=== PATIENT | female | born 1985 | race Caucasian/White ===

== ENCOUNTER 2016-11-07 10:31 | Emergency (ER) | payer MEDICAID ==
--- NOTE | 2016-11-07 11:06 | ER Document Report ---
HPI - HPI Patient complains to provider of: knot in front of right ear Onset: Yesterday Onset/Duration: Gradual Quality of pain: Throbbing Pain Level: 5 Context: 31-year-old female complaining of a knot in front of her right ear which causes her head to hurt on that side. No fever or chills. No conjunctivitis or eye drainage. Associated Symptoms: None Exacerbated by: Denies Relieved by: Denies Similar symptoms previously: No Recently seen / treated by doctor: No - ROS ROS below otherwise negative: Yes Systems Reviewed and Negative: Yes All other systems reviewed and negative - REPRODUCTIVE LMP: 10/17/16 Reproductive: DENIES: : - DERM Skin Color: Normal Past Medical History - General Information source: Patient - Social History Smoking Status: Current Every Day Smoker Chew tobacco use (# tins/day): Yes - 5 Frequency of alcohol use: None Drug Abuse: None Lives with: Family Family History: Reviewed & Not Pertinent Patient has suicidal ideation: No Patient has homicidal ideation: No Renal/ Medical History: Denies: Hx Peritoneal Dialysis Psychiatric Medical History: Reports: Hx Attention Deficit Hyperactivity Disorder, Hx Bipolar Disorder Surgical Hx: Negative - Immunizations Hx Diphtheria, Pertussis, Tetanus Vaccination: No Vertical Provider Document - CONSTITUTIONAL Agree With Documented VS: Yes Exam Limitations: No Limitations - INFECTION CONTROL TRAVEL OUTSIDE OF THE [place] IN LAST 30 DAYS: No - HEENT HEENT: Normocephalic, PERRLA. negative: Conjuctival Injection, Tympanic Membrane Red, Tympanic Membrane Bulging Notes: Canal is normal. There is a small lesion in the mid lower lip which should not be draining to the right preauricular node. - NECK Neck: Supple, Other - RESPIRATORY Respiratory: Breath Sounds Normal, No Respiratory Distress - See above O2 Sat by Pulse Oximetry: 99 - CARDIOVASCULAR Cardiovascular: Regular Rate, Regular Rhythm - MUSCULOSKELETAL/EXTREMETIES Musculoskeletal/Extremeties: WALLY JEFEFRS - NEURO Level of Consciousness: Awake, Alert - DERM Integumentary: Warm, Dry Course - Vital Signs Vital signs: Temp Pulse Resp BP Pulse Ox 98.3 F 71 18 107/62 99 11/07/16 10:46 11/07/16 10:46 11/07/16 10:46 11/07/16 10:46 11/07/16 10:46 Discharge - Discharge Clinical Impression: right preauricular adenitis Headache Qualifiers: Headache type: unspecified Headache chronicity pattern: unspecified pattern Intractability: not intractable Qualified Code(s): R51 - Headache Condition: Good Disposition: HOME, SELF-CARE Instructions: Cephalexin ([facility]), Lymphadenopathy ([facility]), Acetaminophen Additional Instructions: warm compress to er if worse Please complete the patient satisfaction survey if you get one, and return it.. If you do not receive a survey, then you can go to the [facility] website, [email or web address] and place your comments about your very good care. Thank you very much. It was a pleasure being your medical provider today. Prescriptions: Cephalexin Monohydrate [Keflex 500 mg Capsule] 500 mg PO QID #28 capsule
[2016-11-07] MEDS ORDERED: ACETAMINOPHEN 325 MG TABLET PO ONE (11:20)
[2016-11-07 11:30] VITALS: BP 105/60
== END 2016-11-07 11:29 | disposition home or self-care (01) ==
LOC: ER 10:31
DX: R51 Headache (principal)
CPT/HCPCS: 99282; J3490

== ENCOUNTER → 2016-11-25 | Outpatient (CLI) | payer MEDICAID | LOC: OD 11:16 | PROVIDERS: ATTEND Nurse Practitioner Family | DX: M54.2 Cervicalgia (principal); M25.512 Pain in left shoulder | CPT/HCPCS: 72050 ==

== ENCOUNTER 2016-12-03 15:44 | Emergency (ER) | payer MEDICAID ==
[2016-12-03] MEDS ORDERED: OXYCODONE-ACETAMINOPHEN 5-325 MG TABLET PO ONE (16:50)
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
[2016-12-03 19:09] VITALS: BP 116/68
--- NOTE | 2016-12-04 16:25 | XCELERA REPORT ---
[address] [address] Upper Extremity Venous Evaluation Name: TAMARA ZAPATA Age: 31 yrs Gender: Female : 1985 Patient Status: Emergency Patient Location: ER Study Date: 12/03/2016 04:59 PM Procedure: Unilateral duplex scan of the left upper extremity veins was performed, including responses to compression and other maneuvers. Reason For Study: swelling, pain Ordering Physician: DERIAN PRIETO Performed By: Leydi Easton Left Sided Venous Evaluation Normal vessel filling wall to wall, compression and augmentation as well as Colour flow down to the forearm veins. Critical Findings Called in to ANDERS Prieto at about 1600. Interpretation Summary No duplex evidence of DVT or obstruction in the left upper extremity. : DERIAN PRIETO > Vincenzo Zapata
== END 2016-12-03 19:09 | disposition home or self-care (01) ==
LOC: ER 15:44
DX: M79.602 Pain in left arm (principal); M79.89 Other specified soft tissue disorders; R03.0 Elevated blood-pressure reading, without diagnosis of hypertension; M54.2 Cervicalgia; Z79.899 Other long term (current) drug therapy
CPT/HCPCS: 71020; 93971; 99284

== ENCOUNTER 2017-02-08 02:11 | Emergency (ER) | payer MEDICAID ==
[2017-02-08] MEDS ORDERED: PROCHLORPERAZINE EDISYLATE INJ 10 MG/2 ML VIAL IV ONE (06:18)
[2017-02-08] MEDS ORDERED: NORMAL SALINE 1000 ML 1,000 ML IV ONE (06:18)
[2017-02-08] MEDS ORDERED: ONDANSETRON HCL INJ/PF 4 MG/2 ML SDV IV ONE (06:18)
[2017-02-08 07:08] LABS: ANION GAP 11 (5-19); BLOOD UREA NITROGEN 15 mg/dL (7-20); CALCIUM 9.2 mg/dL (8.4-10.2); CARBON DIOXIDE 28 mmol/L (22-30); CHLORIDE 103 mmol/L (98-107); CREATININE RESULT 0.81 mg/dL (0.52-1.25); GLUCOSE 89 mg/dL (75-110); POTASSIUM 3.6 mmol/L (3.6-5.0)
--- NOTE | 2017-02-08 08:20 | ER Document Report ---
ED General - General Chief Complaint: Head pain Stated Complaint: HEAD PAIN Time Seen by Provider: 02/08/17 06:17 TRAVEL OUTSIDE OF THE [place] IN LAST 30 DAYS: No - HPI Patient complains to provider of: Head pain Notes: Patient coming in for evaluation of hip pain. Patient states that she has a lump in the back of her neck concerned about lump causing her headache patient states that she has had a headache now ongoing for approximately 4 hours patient denies fevers chills nausea vomiting diarrhea. Patient denies any history of trauma. - Related Data Allergies/Adverse Reactions: NSAIDS (Non-Steroidal Anti-Inflamma Allergy (Verified 12/03/16 15:50) sulfamethoxazole [From Bactrim] Allergy (Verified 02/08/17 02:54) trimethoprim [From Bactrim] Allergy (Verified 02/08/17 02:54) Past Medical History - Social History Smoking Status: Unknown if Ever Smoked Family History: Reviewed & Not Pertinent Renal/ Medical History: Denies: Hx Peritoneal Dialysis Psychiatric Medical History: Reports: Hx Attention Deficit Hyperactivity Disorder, Hx Bipolar Disorder, Hx Depression Past Surgical History: Reports: Hx Section, Hx Orthopedic Surgery, Hx Tonsillectomy - & A - Immunizations Hx Diphtheria, Pertussis, Tetanus Vaccination: No Review of Systems - Review of Systems Constitutional: No symptoms reported EENT: No symptoms reported Cardiovascular: No symptoms reported Respiratory: No symptoms reported Gastrointestinal: No symptoms reported Genitourinary: No symptoms reported Female Genitourinary: No symptoms reported Musculoskeletal: No symptoms reported Skin: No symptoms reported Hematologic/Lymphatic: No symptoms reported Neurological/Psychological: Headaches -: Yes All other systems reviewed and negative Physical Exam - Vital signs Vitals: Temp Pulse Resp BP Pulse Ox 97.8 F 72 16 119/74 99 02/08/17 02:48 02/08/17 02:48 02/08/17 02:48 02/08/17 02:48 02/08/17 02:48 Interpretation: Normal - General General appearance: Appears well, Alert - HEENT Head: Normocephalic, Atraumatic Eyes: Normal Pupils: PERRL Notes: Single occipital lymphadenopathy on the left side. No signs of fluctuance no signs of abscess formation. - Respiratory Respiratory status: No respiratory distress Chest status: Nontender Breath sounds: Normal Chest palpation: Normal - Cardiovascular Rhythm: Regular Heart sounds: Normal auscultation Murmur: No - Abdominal Inspection: Normal Distension: No distension Bowel sounds: Normal Tenderness: Nontender Organomegaly: No organomegaly - Back Back: Normal, Nontender - Extremities General upper extremity: Normal inspection, Nontender, Normal color, Normal ROM , Normal temperature General lower extremity: Normal inspection, Nontender, Normal color, Normal ROM , Normal temperature, Normal weight bearing. No: Brooklynn's sign - Neurological Neuro grossly intact: Yes Cognition: Normal Orientation: AAOx4 [place] Coma Scale Eye Opening: Spontaneous [place] Coma Scale Verbal: Oriented [place] Coma Scale Motor: Obeys Commands [place] Coma Scale Total: 15 Speech: Normal Motor strength normal: LUE, RUE, LLE, RLE Sensory: Normal - Psychological Associated symptoms: Normal affect, Normal mood - Skin Skin Temperature: Warm Skin Moisture: Dry Skin Color: Normal Course - Re-evaluation Re-evalutation: 02/08/17 14:01 The patient presents with headache without signs of MANAGER CUSTOMER bleed, stroke, infection , or other serious etiology. The patient is neurologically intact. Given the extremely low risk of these diagnoses further testing and evaluation for these possibilities does not appear to be indicated at this time. The patient has been instructed to return if the symptoms worsen or change in any way.. Patient feeling better after medications. Patient will be discharged home follow-up with primary care physician - Vital Signs Vital signs: Temp Pulse Resp BP Pulse Ox 97.8 F 72 15 107/69 100 02/08/17 02:48 02/08/17 02:48 02/08/17 08:00 02/08/17 08:17 02/08/17 08:17 - Laboratory Result Diagrams: 02/08/17 06:45 Discharge - Discharge Clinical Impression: Occipital lymphadenopathy Headache Qualifiers: Headache type: unspecified Headache chronicity pattern: unspecified pattern Intractability: not intractable Qualified Code(s): R51 - Headache Condition: Good Disposition: HOME, SELF-CARE Instructions: Headache ([facility]) Additional Instructions: Examination today reveals no serious pathology. Lab work also does not show any serious pathology. I will prescribe you the medication that we gave you for your headache Compazine and Zofran please take these 2 medications together for headaches if they return. He may also take Tylenol Motrin. Continue home medications as prescribed. You have a single prominent lymph node in the back your head no signs of abscess formation. Continue to monitor this sometimes lymph nodes will become inflamed can cause pain sometimes an abscess will form however I see no signs of this today. I recommended she have this reevaluated in approximately 1-2 weeks by her primary care physician Prescriptions: Ondansetron [Zofran Odt 4 mg Tablet] 4 mg PO Q6 #14 tab.rapdis Prochlorperazine Maleate [Compazine] 5 mg PO Q6 #14 tablet Forms: Return to Work Referrals: AARON MORAN MD [Primary Care Provider] - Follow up as needed
[2017-02-08 08:21] VITALS: BP 107/69
== END 2017-02-08 08:40 | disposition home or self-care (01) ==
LOC: ER 02:11
DX: R59.1 Generalized enlarged lymph nodes (principal); R51 Headache; Z88.3 Allergy status to other anti-infective agents
CPT/HCPCS: 99284; 96374; 96375; 36415; 84703; 80048; J0780; J2405; J7030

== ENCOUNTER 2017-03-24 17:06 | Emergency (ER) | payer MEDICAID ==
[2017-03-24 17:14] VITALS: BP 133/69
--- NOTE | 2017-03-24 18:19 | ER Document Report ---
ED Extremity Problem, Upper - General Chief Complaint: Shoulder Pain Stated Complaint: SHOULDER PAIN Time Seen by Provider: 03/24/17 17:44 Mode of Arrival: Ambulatory Information source: Patient Notes: 31-year-old female presented to ED for chronic pain to her left shoulder. She has been being seen by Dr. Cerrato who had placed medication patched to help with her chronic pain and had taken her off of her oxycodone's. Patient states that the patches were not helping and the patches were burning her skin and she could not use them and she states she has been trying to call Dr. Cerrato to get a different pain medicine. She states the doctor's office told her to come to the emergency room for her chronic pain management. TRAVEL OUTSIDE OF THE [place] IN LAST 30 DAYS: No - HPI Patient complains to provider of: Shoulder - Chronic pain to left shoulder states she was told by Dr. Cerratoon Monday that she had a torn rotator cuff. Onset: Other - 4 months ago Recent injury: No Quality of pain: Sharp, Throbbing Severity of pain: Moderate Pain Level: 4 Associated symptoms: None Exacerbated by: Movement Relieved by: Nothing Similar symptoms previously: Yes Recently seen / treated by doctor: Yes - Related Data Allergies/Adverse Reactions: NSAIDS (Non-Steroidal Anti-Inflamma Allergy (Verified 03/24/17 17:12) sulfamethoxazole [From Bactrim] Allergy (Verified 03/24/17 17:12) trimethoprim [From Bactrim] Allergy (Verified 03/24/17 17:12) Past Medical History - General Information source: Patient - Social History Smoking Status: Current Every Day Smoker Cigarette use (# per day): Yes Chew tobacco use (# tins/day): No Smoking Education Provided: Yes - Less than 2 minutes Frequency of alcohol use: None Drug Abuse: None Lives with: Other - Children Family History: Reviewed & Not Pertinent Patient has suicidal ideation: No Patient has homicidal ideation: No - Past Medical History Cardiac Medical History: Reports: None Pulmonary Medical History: Reports: None EENT Medical History: Reports: None Neurological Medical History: Reports: None Endocrine Medical History: Reports: None Renal/ Medical History: Reports: None Malignancy Medical History: Reports: None GI Medical History: Reports: None Musculoskeltal Medical History: Reports Hx Musculoskeletal Deformity, Reports Hx Musculoskeletal Trauma Skin Medical History: Reports None Psychiatric Medical History: Reports: Hx Attention Deficit Hyperactivity Disorder, Hx Bipolar Disorder, Hx Depression Traumatic Medical History: Reports: None Infectious Medical History: Reports: None Past Surgical History: Reports: Hx Section, Hx Orthopedic Surgery, Hx Tonsillectomy - & A - Immunizations Hx Diphtheria, Pertussis, Tetanus Vaccination: No Review of Systems - Review of Systems Constitutional: No symptoms reported EENT: No symptoms reported Cardiovascular: No symptoms reported Respiratory: No symptoms reported Gastrointestinal: No symptoms reported Genitourinary: No symptoms reported Female Genitourinary: No symptoms reported Musculoskeletal: Joint pain, Muscle pain - Left shoulder pain, Muscle stiffness Skin: No symptoms reported Hematologic/Lymphatic: No symptoms reported Neurological/Psychological: No symptoms reported -: Yes All other systems reviewed and negative Physical Exam - Vital signs Vitals: Temp Pulse Resp BP Pulse Ox 97.8 F 78 18 133/69 H 100 03/24/17 17:13 03/24/17 17:13 03/24/17 17:13 03/24/17 17:13 03/24/17 17:13 Interpretation: Normal - General General appearance: Appears well, Alert - HEENT Head: Normocephalic, Atraumatic Eyes: Normal Pupils: PERRL - Respiratory Respiratory status: No respiratory distress Chest status: Nontender Breath sounds: Normal Chest palpation: Normal - Cardiovascular Rhythm: Regular Heart sounds: Normal auscultation Murmur: No - Abdominal Inspection: Normal Distension: No distension Bowel sounds: Normal Tenderness: Nontender Organomegaly: No organomegaly - Back Back: Normal, Nontender - Extremities General upper extremity: Normal inspection, Normal color, Normal temperature General lower extremity: Normal inspection, Nontender, Normal color, Normal ROM , Normal temperature, Normal weight bearing. No: Brooklynn's sign Shoulder: Tender, Limited ROM - Due to pain patient is in the sling to the left shoulder - Neurological Neuro grossly intact: Yes Cognition: Normal Orientation: AAOx4 [place] Coma Scale Eye Opening: Spontaneous [place] Coma Scale Verbal: Oriented [place] Coma Scale Motor: Obeys Commands [place] Coma Scale Total: 15 Speech: Normal Motor strength normal: LUE, RUE, LLE, RLE Sensory: Normal - Psychological Associated symptoms: Normal affect, Normal mood - Skin Skin Temperature: Warm Skin Moisture: Dry Skin Color: Normal Course - Re-evaluation Re-evalutation: 03/24/17 22:41 Discussed shoulder exercises swimming ice warm packs and Aspercreme. Instructed patient on the hospital policy on chronic pain management. There has been no new injury to this area. - Vital Signs Vital signs: Temp Pulse Resp BP Pulse Ox 97.8 F 78 18 133/69 H 100 03/24/17 17:13 03/24/17 17:13 03/24/17 17:13 03/24/17 17:13 03/24/17 17:13 Discharge - Discharge Clinical Impression: Chronic pain in left shoulder Condition: Stable Disposition: HOME, SELF-CARE Additional Instructions: Chronic Pain Control Stress, inactivity, and depression make pain more severe regardless of the cause of the pain. Stress and poor physical condition can cause pain such as headaches and backache. Relaxation: Rest in a quiet place with your eyes closed for 20 minutes twice daily. Concentrate on a pleasant image, or simply "feel" your breathing. Clear your mind. Stress management: Deal with your "stressors." Either take action, or eliminate the stressor from your life. Don't let things hang over you. Accept those things you can't change. Nutrition: Eat small, balanced meals -- don't skip, don't overeat. Meals should be high-carbohydrate, low-sugar, low-fat. Exercise: Exercise helps painful conditions and eases stress. Get 30 minutes of moderate exercise, five days a week. Do an activity that does not flare your pain. Precautions: Pain which continues to disrupt daily activities, or which changes in nature, requires a medical evaluation. Pain Clinic referral is available. We do not manage chronic pain in the Emergency Department. We will try to appropriately help you through an acute flare of your chronic painful condition , but for on-going chronic pain that does not improve, you will need to see your private doctor or lead painter. We do not provide repeated medication management of chronic painful conditions. If you wish, we can provide the name of local pain management physicians. Acetaminophen Acetaminophen may be taken for pain relief or fever control. It's much safer than aspirin, offering a wider range of "safe" dosages. It is safe during . Some brand names are Tylenol, Panadol, Datril, Anacin 3, Tempra, and Liquiprin. Acetaminophen can be repeated every four hours. The following are maximum recommended dosages: WEIGHT Dose Drops Elixir Chewable( 80mg) (LBS.) drprs=droppers tsp=teaspoon 6 40 mg .4 ml (1/2) 6-11 80 mg .8 ml (full) 1/2 tsp 1 tab 12-16 120 mg 1 1/2 drprs 3/4 tsp 1 1/2 tabs 17-23 160 mg 2 drprs 1 tsp 2 tabs 24-30 240 mg 3 drprs 1 1/2 tsp 3 tabs 30-35 320 mg 2 tsp 4 tabs 36-41 360 mg 2 1/4 tsp 4 1 /2 tabs 42-47 400 mg 2 1/2 tsp 5 tabs 48-53 480 mg 3 tsp 6 tabs 54-59 520 mg 3 1/4 tsp 6 1 /2 tabs 60-64 560 mg 3 1/2 tsp 7 tabs 65-70 600 mg 3 3/4 tsp 7 1 /2 tabs 71-76 640 mg 4 tsp 8 tabs 77-82 720 mg 4 1/2 tsp 9 tabs 83-88 800 mg 5 tsp 10 tabs >89 pounds or adults 650 mg to 900 mg Acetaminophen can be repeated every four hours. Maximum daily dose not to exceed 4000 mg. These maximum recommended dosages are slightly higher than the dosages written on the product container, but these dosages are very safe and well below the toxic dosage for acetaminophen. Ice Packs Apply ice packs frequently against the painful area. Many different schedules are recommended, such as "20 minutes on, 20 minutes off" or "one hour ice, two hours rest." If you need to work, you may need to go longer between ice treatments. You should plan to have the area ice packed AT LEAST one fourth of the time. The ice should be applied over the wrap, tape, or splint, or over a layer of cloth -- not directly against the skin. Some ice bags have a built-in cloth and can be put directly on the skin. Warm Packs After approximately two days, apply gentle heat (such as a heating pad or hot water bottle) for about 20 to 30 minutes about every two hours -- at least four times daily. Warmth and elevation will help you make a more rapid recovery , and will ease the pain considerably. Do not use HOT heat, and never apply heat for longer than 30 minutes. The continuous heat can invisibly damage skin and muscles -- even when no burn is seen on the surface. Damaged muscles can make you MORE sore. FOLLOW-UP CARE: If you have been referred to a physician for follow-up care, call the physician s office for an appointment as you were instructed or within the next two days. If you experience worsening or a significant change in your symptoms, notify the physician immediately or return to the Emergency Department at any time for re-evaluation. Forms: Elevated Blood Pressure Referrals: AARON MORAN MD [Primary Care Provider] - Follow up as needed
== END 2017-03-24 18:21 | disposition home or self-care (01) ==
LOC: ER 17:06
DX: M25.512 Pain in left shoulder (principal); G89.29 Other chronic pain; Z79.899 Other long term (current) drug therapy; F17.210 Nicotine dependence, cigarettes, uncomplicated
CPT/HCPCS: 99283

== ENCOUNTER 2017-04-27 09:07 | Day surgery (SDC) | payer MEDICAID ==
--- NOTE | 2017-04-21 10:59 | RADIOLOGY REPORT (SQ) ---
EXAM DESCRIPTION: CHEST PA/LATERAL COMPLETED DATE/TIME: 04/21/2017 10:51 am REASON FOR STUDY: PRE OP COMPARISON: 12/03/2016 EXAM PARAMETERS: NUMBER OF VIEWS: two views TECHNIQUE: Digital Frontal and Lateral radiographic views of the chest acquired. RADIATION DOSE: NA LIMITATIONS: none FINDINGS: LUNGS AND PLEURA: No opacities, masses or pneumothorax. No pleural effusion. MEDIASTINUM AND HILAR STRUCTURES: No masses or contour abnormalities. HEART AND VASCULAR STRUCTURES: Heart normal size. No evidence for failure. BONES: No acute findings. HARDWARE: None in the chest. OTHER: No other significant finding. IMPRESSION: NO SIGNIFICANT RADIOGRAPHIC FINDING IN THE CHEST. TECHNICAL DOCUMENTATION: JOB ID: [id number] [employer]- All Rights Reserved
[2017-04-21 11:38] LABS: APPEARANCE,URINE SLIGHTLY-CLOUDY; BILIRUBIN,URINE NEGATIVE (NEGATIVE); GLUCOSE, URINE NEGATIVE (NEGATIVE); KETONES,URINE NEGATIVE (NEGATIVE); LEUKOCYTE ESTERASE,URINE NEGATIVE (NEGATIVE); NITRITE,URINE NEGATIVE (NEGATIVE); PROTEIN,URINE NEGATIVE (NEGATIVE); URINE SPECIFIC GRAVITY 1.026
[2017-04-21 11:44] LABS: ABSOLUTE EOSINOPHILS # (AUTO) 0.2 10^3/uL (0.0-0.6); ABSOLUTE LYMPHOCYTES (AUTO) 2.5 10^3/uL (0.5-4.7); ABSOLUTE MONOCYTES (AUTO) 0.7 10^3/uL (0.1-1.4); ABSOLUTE NEUT (AUTO) 1.8 10^3/uL (1.7-8.2); BASOPHILS % (AUTO) 0.8 % (0-2); EOSINOPHILS % (AUTO) 4.3 % (0-6); HEMATOCRIT 40.8 % (36.0-47.0); HGB HCT DIFFERENCE 1.2; MEAN CORPUSCULAR HEMOGLOBIN 30.6 pg (27.0-33.4); MEAN CORPUSCULAR HGB CONC 34.4 g/dL (32.0-36.0); MEAN CORPUSCULAR VOLUME 89 fl (80-97); MONOCYTES % (AUTO) 13.6 % (3-13); RED BLOOD COUNT 4.59 10^6/uL (3.72-5.28); RED CELL DISTRIBUTION WIDTH 14.1 % (11.5-14.0); SEGMENTED NEUTROPHILS % (AUTO) 33.3 % (42-78); WHITE BLOOD COUNT 5.3 10^3/uL (4.0-10.5)
[2017-04-21 12:09] LABS: ANION GAP 9 (5-19); BLOOD UREA NITROGEN 8 mg/dL (7-20); CALCIUM 9.6 mg/dL (8.4-10.2); CARBON DIOXIDE 29 mmol/L (22-30); CHLORIDE 104 mmol/L (98-107); CREATININE RESULT 0.72 mg/dL (0.52-1.25); GLUCOSE 88 mg/dL (75-110); POTASSIUM 4.3 mmol/L (3.6-5.0)
--- NOTE | 2017-04-21 17:27 | EKG REPORT ---
SEVERITY:- NORMAL ECG - SINUS RHYTHM : Confirmed by: Mayra Sweeney 21-Apr-2017 17:27:21
[~2017-04-27 09:07] MED LIST: ACETAMINOPHEN 100 ML IV ONE; BUPIVACAINE HCL 0.25 % INJ/PF (2.5 MG/1 ML) 30 ML VIAL ONE; CEFAZOLIN 2 GM/D5W RTU 2 GM/50 ML RTUPB IV PRN; DEXMEDETOMIDINE INJ 80 MCG/20 ML VIAL IV ONE; EPINEPHRINE INJ/PF 1 MG/1 ML AMPULE ONE; FENTANYL CITRATE INJ/PF 250 MCG/5 ML AMPULE ONE; IBUPROFEN INJ 800 MG/8 ML VIAL IV ONE; LACTATED RINGERS 1000 ML IV PRN; LIDOCAINE 0.5% INJ-PF (5 MG/ML) 50 ML SDV SUBCUT PRN; MIDAZOLAM 2 MG/2 ML INJ ONE; PROPOFOL INJ 200 MG/20 ML VIAL IV ONE
[2017-04-27] MEDS ORDERED: MORPHINE SULFATE 10 MG/ML INJ IV PRN (09:43)
[2017-04-27] MEDS ORDERED: ONDANSETRON HCL INJ/PF 4 MG/2 ML SDV IV PRN (09:43)
[2017-04-27] MEDS ORDERED: FENTANYL CITRATE INJ/PF 100 MCG/2 ML AMPUL IV PRN ×3 (09:43)
[2017-04-27] MEDS ORDERED: MEPERIDINE HCL/PF INJ 25 MG/1 ML DISP.SYRIN IV PRN (09:43)
[2017-04-27] MEDS ORDERED: DIPHENHYDRAMINE HCL 50 MG/ML VIAL IV PRN (09:43)
[2017-04-27] MEDS ORDERED: PROMETHAZINE HCL INJ 25 MG/1 ML VIAL IV PRN ×2 (09:43)
[2017-04-27] MEDS ORDERED: HYDROMORPHONE HCL INJ/PF 2 MG/ML AMPULE ONE (09:48)
[2017-04-27] MEDS ORDERED: SCOPOLAMINE HYDROBROMIDE 1.5 MG PATCH.TD72 ONE (10:07)
--- NOTE | 2017-04-27 12:11 | Operative Report ---
Operative Report DATE OF SURGERY: 04/27/17 PREOPERATIVE DIAGNOSIS: Right shoulder partial thickness rotator cuff tear and impingement syndrome POSTOPERATIVE DIAGNOSIS: Right shoulder impingement syndrome and type II SLAP tear with Madeline complex OPERATION: Right shoulder arthroscopy with debridement and decompression including acromioplasty and subpectoralis biceps tenodesis SURGEON: JONNA DO ANESTHESIA: GA TISSUE REMOVED OR ALTERED: Portion of the long head of the biceps COMPLICATIONS: None ESTIMATED BLOOD LOSS: 20 mL INTRAOPERATIVE FINDINGS: As above PROCEDURE: Patient received preoperative antibiotics in the holding area. Patient then was taken to the operating room where she was induced and intubated in supine position. Patient then was secured in the beachchair position where the left shoulder was prepped and draped in a normal surgical fashion. Was done identifying the left shoulder as the correct site. Spinal needle was used to insert into the glenohumeral joint and I proceeded to distend the capsule with sterile saline solution. 11 blade was used to establish my posterior portal and I introduced the cannula into the glenohumeral joint. Once I got return of fluid I confirm proper placement and placed a camera. Under direct visualization I placed a spinal needle marked my anterior portal and used an 11 blade to establish a. I placed a purple cannula and then through the cannula was able to probe and proceed with my diagnostic scope which show pristine glenohumeral joint cartilage and intact labrum anterior, inferior and posterior. Patient had a Madeline complex and a detached superior labral tear. Pictures were taken showing the tear with elevation with my probe. To my attention to the footprint of the rotator cuff which showed to be intact with no partial tearing which was contrary to what the MRI report showed.. At this point through the anterior portal I use arthroscopic scissors to do a tenotomy of the long head of the biceps at the attachment of the glenoid superiorly. After debriding the remnant labrum I redirected the scope to the subacromial space and established a lateral portal with 11 blade. Attention was done horizontally. I used the ablator to them do a formal bursectomy and delineate the acromion. Pictures of the before and after acromioplasty. Took pictures to show the intact rotator cuff and the bursal side. Also satisfied with my decompression and acromioplasty I proceeded then to remove fluid from the shoulder joint and removed the instruments. A 1 inch incision was done just medial to the axillary fold dissection was done with Metzenbaum scissors and hemostasis was obtained with the Bovie. Able to then cut the fascia overlying the biceps and then hooked the long head of biceps with a 90 clamp. Was able then to use a fiber loop and suture 2 cm from the muscular tendinous junction and cut the remaining tendon. I used 2 Homans to reflect tissue on the side of the humerus. I used a 4 mm spade tip guidepin then to do my proximal cortex drilling into the intramedullary canal of the humerus. I fed the 2 ends of the fiber wire into the biceps tenodesis button as recommended by the manufacturing company. Pulled out the guidepin and then proceeded to insert the button into the intramedullary canal. I was able to successfully flipped the button and after releasing securing the biceps. I used a free needle the comes in the care and pass one of the FiberWire ends through the biceps one more time to further secure it. Once I since the biceps onto the humeral cortex I then proceeded to go several half hitch knots for added fixation. Instruments were removed and used bulb irrigation to wash the tissue. I proceeded to approximate the tissue with 2-0 Vicryl and close the skin with 3-0 nylon. The 2 of the portal sites were closed with 3-0 nylon as well. I placed Xeroform over the incisions and covered it with 4 x 4 dressing and ABD pads. Secured the dressing with Medipore tape. Patient's arm was placed in the sling and the patient then was placed in supine position extubated and sent to PACU in stable condition.
[2017-04-27] MEDS ORDERED: OXYCODONE-ACETAMINOPHEN 5-325 MG TABLET PO PRN ×2 (12:14)
--- NOTE | 2017-04-27 12:14 | PDOC DISCHARGE SUMMARY ---
Discharge Summary (SDC) - Discharge Final Diagnosis: Status post left shoulder arthroscopic debridement with subacromial decompression including acromioplasty and subpectoralis biceps tenodesis Date of Surgery: 04/27/17 Discharge Date: 04/27/17 Condition: Good Treatment or Instructions: Patient is instructed to follow up in 10-14 days. Patient instructed to remove dressing in 4 days then can shower and apply Band- Aids as needed. Patient to wear sling for comfort but okay to remove for shower and pendulum exercises. Pendulum exercises are instructed to be done 3 times a day ideally with breakfast, lunch, dinners and showers. Patient instructed to call if there is any signs of redness or drainage fevers or chills. Prescriptions: Oxycodone HCl/Acetaminophen [Percocet 5-325 mg Tablet] 1 - 2 tab PO ASDIR PRN # 60 tablet PRN Reason: Referrals: BOBBY AMADOR, VIRTUALIZATION ARCHITECT [Primary Care Provider] - Discharge Diet: As Tolerated Respiratory Treatments at Home: Deep Breathing/Coughing Discharge Activity: No Driving, No Lifting/Push/Pulling Home Care Assistance: None Needed Report the Following to Your Physician Immediately: Shortness of Breath, Vomiting, Fever over 101 Degrees, Unusual Bleeding, Redness, Swelling, Warmth, Increased Soreness, Drainage-Yellow, Drainage-[place], Drainage-Green, Drainage- Foul Smelling
[2017-04-27] MEDS ORDERED: SUCCINYLCHOLINE CHLORIDE INJ 200 MG/10 ML VIAL ONE (12:52)
[2017-04-27] MEDS ORDERED: LIDOCAINE 2% INJ-PF (20 MG/ML) 10 ML AMPUL ONE (12:52)
[2017-04-27] MEDS ORDERED: DEXAMETHASONE SOD PHOSPHATE INJ 4 MG/1 ML VIAL ONE (12:52)
[2017-04-27] MEDS ORDERED: ONDANSETRON HCL INJ/PF 4 MG/2 ML SDV ONE (12:52)
[2017-04-27] MEDS ORDERED: METOCLOPRAMIDE HCL INJ/PF 10 MG/2 ML SDV ONE (12:52)
[2017-04-27 15:19] VITALS: BP 119/76
== END 2017-04-27 14:40 | disposition home or self-care (01) ==
LOC: OROUT 09:07
PROVIDERS: ATTEND Orthopaedic Surgery
PROC: 0RBK4ZZ Excision of Left Shoulder Joint, Percutaneous Endoscopic Approach (ICD-10-PCS; 2017-04-27)
PROC: 0LM40ZZ Reattachment of Left Upper Arm Tendon, Open Approach (ICD-10-PCS; principal; 2017-04-27 11:15)
DX: M75.112 Incomplete rotator cuff tear or rupture of left shoulder, not specified as traumatic (principal); F17.210 Nicotine dependence, cigarettes, uncomplicated; F31.9 Bipolar disorder, unspecified; F41.9 Anxiety disorder, unspecified; E66.9 Obesity, unspecified; Z88.6 Allergy status to analgesic agent; Z79.899 Other long term (current) drug therapy; Z68.34 Body mass index [BMI] 34.0-34.9, adult
CPT/HCPCS: 24340; 93005; 36415; 85025; 81025; 80048; 81001; 71020; 93010; 29822; C1713; J2250; J1100; J0171; J3010; J3490 ×3; J2765; J0330; J2405; S0020; J2704; J0690; J0131; 1630; J1170; J1741

== ENCOUNTER 2017-07-11 18:44 | Emergency (ER) | payer MEDICAID ==
[2017-07-11 19:35] VITALS: BP 125/73
[2017-07-11] MEDS ORDERED: HYDROCODONE/ACETAMINOPHEN 5-325 MG TABLET PO ONE (21:26)
--- NOTE | 2017-07-11 21:29 | ER Document Report ---
ED Medical Screen (RME) - General Chief Complaint: Post Surgical Pain Stated Complaint: LEFT ARM PAIN, SWELLING Time Seen by Provider: 07/11/17 21:26 Mode of Arrival: Ambulatory Information source: Patient Notes: A 32-year-old female presents to ED and pain. Left upper arm is tight very tender to touch decreased range of motion. Patient states she had bicep tendon surgery April 27 and the pain started several days ago and is gotten progressively worse. Patient has a past medical history of fracture to the ankle with surgery and tonsillectomy. Allergic to sulfa and NSAIDs. I have greeted and performed a rapid initial assessment of this patient. A comprehensive ED assessment and evaluation of the patient, analysis of test results and completion of medical decision making process will be conducted by an additional ED providers. TRAVEL OUTSIDE OF THE [place] IN LAST 30 DAYS: No - Related Data Allergies/Adverse Reactions: NSAIDS (Non-Steroidal Anti-Inflamma Allergy (Verified 07/11/17 18:50) sulfamethoxazole [From Bactrim] Allergy (Verified 07/11/17 18:50) trimethoprim [From Bactrim] Allergy (Verified 07/11/17 18:50) Past Medical History - Past Medical History Cardiac Medical History: Denies: Hx Coronary Artery Disease, Hx Heart Attack, Hx Hypertension Pulmonary Medical History: Denies: Hx Asthma, Hx Bronchitis, Hx COPD, Hx Pneumonia Neurological Medical History: Denies: Hx Cerebrovascular Accident, Hx Seizures Renal/ Medical History: Denies: Hx Peritoneal Dialysis Musculoskeltal Medical History: Reports Hx Arthritis - OA, Reports Hx Musculoskeletal Deformity, Reports Hx Musculoskeletal Trauma Psychiatric Medical History: Reports: Hx Attention Deficit Hyperactivity Disorder, Hx Bipolar Disorder, Hx Depression Past Surgical History: Reports: Hx Section, Hx Orthopedic Surgery, Hx Tonsillectomy - & A - Immunizations Hx Diphtheria, Pertussis, Tetanus Vaccination: No Physical Exam - Vital signs Vitals: Temp Pulse Resp BP Pulse Ox 97.9 F 78 20 125/73 100 07/11/17 19:34 07/11/17 19:34 07/11/17 19:34 07/11/17 19:34 07/11/17 19:34 Course - Vital Signs Vital signs: Temp Pulse Resp BP Pulse Ox 97.9 F 78 20 125/73 100 07/11/17 19:34 07/11/17 19:34 07/11/17 19:34 07/11/17 19:34 07/11/17 19:34
[2017-07-11] MEDS ORDERED: HYDROCODONE/ACETAMINOPHEN 5-325 MG 6 TAB/DSPK PO PRN (23:50)
--- NOTE | 2017-07-11 23:53 | ER Document Report ---
ED General - General Chief Complaint: Post Surgical Pain Stated Complaint: LEFT ARM PAIN, SWELLING Time Seen by Provider: 07/11/17 21:26 Mode of Arrival: Ambulatory Notes: Patient is a pleasant 32-year-old female presents with complaint of pain in her left arm. She says over last several days her left arm has become swollen. She had surgery performed by Dr. Chirinos. She says surgery was performed on her biceps tendon. She says that she is currently in physical therapy. She has had no recurrent trauma. No recurrent injuries that she is aware of. She does have a sling at home but has not been wearing it she did not know if this would help. She has been taking Tylenol for pain says is not helping. I did look up and then the prescription database. She is received pain medication prescription from Dr. Vinson after surgery and also received a prescription from [facility] on July 01. She said she did go to [facility] at that time and was seen in follow-up with Dr. Gallegos afterwards. Dr. Chirinos gave her cortisone shot but now she has have recurrent swelling and pain and therefore came to the ER. No numbness or weakness into the hand. No other complaints at this time. No redness. No fevers. TRAVEL OUTSIDE OF THE [place] IN LAST 30 DAYS: No - Related Data Allergies/Adverse Reactions: NSAIDS (Non-Steroidal Anti-Inflamma Allergy (Verified 07/11/17 18:50) sulfamethoxazole [From Bactrim] Allergy (Verified 07/11/17 18:50) trimethoprim [From Bactrim] Allergy (Verified 07/11/17 18:50) Past Medical History - General Information source: Patient - Social History Smoking Status: Unknown if Ever Smoked Frequency of alcohol use: None Drug Abuse: None Family History: Reviewed & Not Pertinent Patient has suicidal ideation: No Patient has homicidal ideation: No - Past Medical History Cardiac Medical History: Denies: Hx Coronary Artery Disease, Hx Heart Attack, Hx Hypertension Pulmonary Medical History: Denies: Hx Asthma, Hx Bronchitis, Hx COPD, Hx Pneumonia Neurological Medical History: Denies: Hx Cerebrovascular Accident, Hx Seizures Renal/ Medical History: Denies: Hx Peritoneal Dialysis Musculoskeltal Medical History: Reports Hx Arthritis - OA, Reports Hx Musculoskeletal Deformity, Reports Hx Musculoskeletal Trauma Psychiatric Medical History: Reports: Hx Attention Deficit Hyperactivity Disorder, Hx Bipolar Disorder, Hx Depression Past Surgical History: Reports: Hx Section, Hx Orthopedic Surgery, Hx Tonsillectomy - & A - Immunizations Hx Diphtheria, Pertussis, Tetanus Vaccination: No Review of Systems - Review of Systems Notes: My Normal Review Basic REVIEW OF SYSTEMS: CONSTITUTIONAL : Denies fever, chills, or sweats. Denies recent illness. MUSCULOSKELETAL: Swelling over left arm. SKIN: Denies rash or skin lesions. NEUROLOGICAL: Denies sensory or motor loss. ALL OTHER SYSTEMS REVIEWED AND NEGATIVE. Physical Exam - Vital signs Vitals: Temp Pulse Resp BP Pulse Ox 97.9 F 78 20 125/73 100 07/11/17 19:34 07/11/17 19:34 07/11/17 19:34 07/11/17 19:34 07/11/17 19:34 - Notes Notes: General Appearance: Well nourished, alert, cooperative, no acute distress, moderate obvious discomfort. Vitals: reviewed, See vital signs table. Extremities: Patient has swelling that is mild over the left upper arm. There is no redness or warmth associated with it. No signs of infection. No bruising. Remainder of the extremity is normal-appearing. She has good distal pulses. Good distal sensation. Skin: warm, dry, appropriate color, no rash Neuro: speech clear, oriented x 3, normal affect, responds appropriately to questions. Course - Re-evaluation Re-evalutation: 07/11/17 23:56 Patient's ultrasound was negative for DVT. She looks well. Her exam shows just a small amount of swelling. She did ask for pain medicine. I told her only give her a few [place] tablets to go home with. Informed her I do not want to place her on long-term chronic and recurrent opiate pain medications as this will cause her to become dependent and she will have hard time treating her pain in the future without opiates. Patient is understanding of this. I informed her that she should only take these medications very sparingly and only when her pain is very severe especially at night when she is having a hard time sleeping. Patient agrees with this plan and says she will otherwise take other forms of pain control per pain and only use the [place] when her pain is severe and intractable. Patient agrees to follow-up with Dr. Chirinos over the next few days for reevaluation. Encouraged her to wear her sling at home as this will take the strain of her biceps tendon. Dictation of this chart was performed using voice recognition software; therefore, there may be some unintended grammatical errors. - Vital Signs Vital signs: Temp Pulse Resp BP Pulse Ox 97.9 F 78 20 125/73 100 07/11/17 19:34 07/11/17 19:34 07/11/17 19:34 07/11/17 19:34 07/11/17 19:34 Discharge - Discharge Clinical Impression: Arm pain, left Condition: Good Disposition: HOME, SELF-CARE Instructions: Oral Narcotic Medication ([facility]) Additional Instructions: Your ultrasound showed no evidence of DVT in the left arm. Please wear your sling as this will take the strain off of your biceps tendon. Please follow up with Dr. Chirinos in the next 1-3 days. Please only use the [place] when the pain is unbearable. Forms: Return to Work Referrals: JONNA FIGUEREDO MD [ACTIVE STAFF] - Follow up tomorrow
--- NOTE | 2017-07-12 00:58 | RADIOLOGY REPORT (SQ) ---
EXAM DESCRIPTION: VENOUS UNILATERAL UPPER CLINICAL HISTORY: 32 years, Female, left arm swelling pain recent surgery COMPARISON: None. TECHNIQUE: Venous Doppler. LIMITATIONS: None. FINDINGS: Color Doppler flow, compression, and augmentation maneuvers show no evidence of deep venous thrombus of the left upper extremity. IMPRESSION: No evidence of DVT of the left upper extremity. 2011 [employer]- All Rights Reserved
== END 2017-07-12 00:15 | disposition home or self-care (01) ==
LOC: ER 18:44
DX: M79.602 Pain in left arm (principal); Z88.3 Allergy status to other anti-infective agents; Z98.890 Other specified postprocedural states
CPT/HCPCS: 93971; 99283

== ENCOUNTER 2017-09-07 11:34 | Emergency (ER) | payer MEDICAID ==
--- NOTE | 2017-09-07 13:17 | RADIOLOGY REPORT (SQ) ---
EXAM DESCRIPTION: ELBOW LEFT OVER 2 VIEWS COMPLETED DATE/TIME: 09/07/2017 1:04 pm REASON FOR STUDY: fall, elbow pain COMPARISON: None. NUMBER OF VIEWS: Four views. TECHNIQUE: AP, lateral, and both oblique radiographic images acquired of the left elbow. LIMITATIONS: None. FINDINGS: MINERALIZATION: Normal. BONES: No acute fracture or dislocation. No worrisome bone lesions. JOINT: No elbow joint effusion. There are several small loose bodies along the ventral and lateral a spect of the radial head SOFT TISSUES: No soft tissue swelling. No foreign body. OTHER: No other significant finding. IMPRESSION: No acute fracture. No joint effusion TECHNICAL DOCUMENTATION: JOB ID: [id number] [employer]- All Rights Reserved
--- NOTE | 2017-09-07 13:26 | ER Document Report ---
HPI - HPI Patient complains to provider of: Left elbow pain Onset: Just prior to arrival Onset/Duration: Sudden Quality of pain: Sharp Pain Level: 3 Context: Patient states that she slipped and fell landing on her left lateral side injuring her left elbow prior to arrival. Patient complains of increased pain with extension of her elbow. Associated Symptoms: Other - Left elbow tenderness Exacerbated by: Movement Relieved by: Denies Similar symptoms previously: No Recently seen / treated by doctor: No - ROS ROS below otherwise negative: Yes Systems Reviewed and Negative: Yes All other systems reviewed and negative - NEURO Neurology: DENIES: Headache - GASTROINTESTINAL Gastrointestinal: DENIES: Nausea, Patient vomiting - REPRODUCTIVE Reproductive: DENIES: : - MUSCULOSKELETAL Musculoskeletal: REPORTS: Extremity pain - left elbow. DENIES: Back Pain, Neck Pain - DERM Skin Color: Normal Skin Problems: None Past Medical History - General Information source: Patient - Social History Smoking Status: Never Smoker Chew tobacco use (# tins/day): No Frequency of alcohol use: None Drug Abuse: None Lives with: Family Family History: Reviewed & Not Pertinent Patient has suicidal ideation: No Patient has homicidal ideation: No - Past Medical History Cardiac Medical History: Denies: Hx Coronary Artery Disease, Hx Heart Attack, Hx Hypertension Pulmonary Medical History: Denies: Hx Asthma, Hx Bronchitis, Hx COPD, Hx Pneumonia Neurological Medical History: Reports: Hx Migraine. Denies: Hx Cerebrovascular Accident, Hx Seizures Renal/ Medical History: Denies: Hx Peritoneal Dialysis Musculoskeltal Medical History: Reports Hx Arthritis - OA, Reports Hx Musculoskeletal Deformity, Reports Hx Musculoskeletal Trauma Psychiatric Medical History: Reports: Hx Attention Deficit Hyperactivity Disorder, Hx Bipolar Disorder, Hx Depression Past Surgical History: Reports: Hx Section, Hx Orthopedic Surgery - left shoulder/ ankle, Hx Tonsillectomy - & A - Immunizations Hx Diphtheria, Pertussis, Tetanus Vaccination: No Vertical Provider Document - CONSTITUTIONAL Agree With Documented VS: Yes Exam Limitations: No Limitations General Appearance: WD/WN, No Apparent Distress - INFECTION CONTROL TRAVEL OUTSIDE OF THE [place] IN LAST 30 DAYS: No - HEENT HEENT: Atraumatic, Normocephalic - NECK Neck: Normal Inspection - RESPIRATORY Respiratory: Breath Sounds Normal, No Respiratory Distress O2 Sat by Pulse Oximetry: 100 - CARDIOVASCULAR Cardiovascular: Regular Rate, Regular Rhythm Pulses: Normal: Radial - BACK Back: Normal Inspection - MUSCULOSKELETAL/EXTREMETIES Musculoskeletal/Extremeties: MAEW, Tender - Left elbow tenderness over radial head no obvious effusion or edema, No Edema - NEURO Level of Consciousness: Awake, Alert, Appropriate Motor/Sensory: No Motor Deficit - DERM Integumentary: Warm, Dry, No Rash Course - Re-evaluation Re-evalutation: 09/07/17 13:39 Discussed with patient radiology report findings. Patient encouraged to follow- up with her orthopedic doctor for a recheck. Patient verbalized understanding and agrees with plan of care. Controlled substance database reviewed. - Vital Signs Vital signs: Temp Pulse Resp BP Pulse Ox 97.9 F 98 20 130/76 H 100 09/07/17 11:44 09/07/17 11:44 09/07/17 11:44 09/07/17 11:44 09/07/17 11:44 - Diagnostic Test Radiology reviewed: Image reviewed, Reports reviewed Procedures - Immobilization Left Arm Pre-Proc Neuro Vasc Exam: Normal Immobilizer type: Sling Performed by: PCT Post-Proc Neuro Vasc Exam: Normal Alignment checked and good: Yes Discharge - Discharge Clinical Impression: Fall Qualifiers: Encounter type: initial encounter Qualified Code(s): W19.XXXA - Unspecified fall, initial encounter Sprain of left elbow Qualifiers: Encounter type: initial encounter Qualified Code(s): S53.402A - Unspecified sprain of left elbow, initial encounter Condition: Stable Disposition: HOME, SELF-CARE Instructions: Ice & Elevation ([facility]), Sprain ([facility]), Temporary Sling ([facility]) Additional Instructions: Return immediately for any new or worsening symptoms Followup with your primary care provider, call tomorrow to make a followup appointment Follow-up with your orthopedic surgeon for recheck, call tomorrow for an appointment Prescriptions: Hydrocodone/Acetaminophen [[place] 5-325 Tablet] 1 each PO Q6 PRN #8 tablet PRN Reason: Forms: Return to Work Referrals: [facility] [Provider Group] - Follow up in 3-5 days
[2017-09-07 13:54] VITALS: BP 128/83
== END 2017-09-07 13:54 | disposition home or self-care (01) ==
LOC: ER 11:34
DX: S53.402A Unspecified sprain of left elbow, initial encounter (principal); W01.0XXA Fall on same level from slipping, tripping and stumbling without subsequent striking against object, initial encounter
CPT/HCPCS: 99283; L3650

== ENCOUNTER 2017-12-27 23:40 | Emergency (ER) | payer MEDICAID ==
[2017-12-28] MEDS ORDERED: HYDROCODONE/ACETAMINOPHEN 5-325 MG TABLET PO ONE (02:28)
--- NOTE | 2017-12-28 02:28 | ER Document Report ---
ED General - General Chief Complaint: Ankle Pain Stated Complaint: RT ANKLE INJURY Time Seen by Provider: 12/28/17 01:52 Notes: Patient is a 32-year-old female presents with complaint of severe right ankle pain after stepping in a hole and fell on her ankle pop and crack. She denies any other injuries. No pain in her knee. She says her toes are numb. TRAVEL OUTSIDE OF THE [place] IN LAST 30 DAYS: No - Related Data Allergies/Adverse Reactions: NSAIDS (Non-Steroidal Anti-Inflamma Allergy (Verified 09/07/17 12:50) sulfamethoxazole [From Bactrim] Allergy (Verified 09/07/17 12:50) trimethoprim [From Bactrim] Allergy (Verified 09/07/17 12:50) Past Medical History - Social History Smoking Status: Current Some Day Smoker Chew tobacco use (# tins/day): No Frequency of alcohol use: None Drug Abuse: None Family History: Reviewed & Not Pertinent Patient has suicidal ideation: No Patient has homicidal ideation: No - Past Medical History Cardiac Medical History: Denies: Hx Coronary Artery Disease, Hx Heart Attack, Hx Hypertension Pulmonary Medical History: Denies: Hx Asthma, Hx Bronchitis, Hx COPD, Hx Pneumonia Neurological Medical History: Reports: Hx Migraine. Denies: Hx Cerebrovascular Accident, Hx Seizures Renal/ Medical History: Denies: Hx Peritoneal Dialysis Musculoskeltal Medical History: Reports Hx Arthritis - OA, Reports Hx Musculoskeletal Deformity, Reports Hx Musculoskeletal Trauma Psychiatric Medical History: Reports: Hx Attention Deficit Hyperactivity Disorder, Hx Bipolar Disorder, Hx Depression Past Surgical History: Reports: Hx Section, Hx Orthopedic Surgery - left shoulder/ ankle, Hx Tonsillectomy - & A - Immunizations Hx Diphtheria, Pertussis, Tetanus Vaccination: No Review of Systems - Review of Systems Notes: My Normal Review Basic REVIEW OF SYSTEMS: CONSTITUTIONAL : Denies fever, chills, or sweats. Denies recent illness. MUSCULOSKELETAL: Right ankle pain SKIN: Denies rash or skin lesions. NEUROLOGICAL: Denies sensory or motor loss. ALL OTHER SYSTEMS REVIEWED AND NEGATIVE. Physical Exam - Vital signs Vitals: Temp Pulse Resp BP Pulse Ox 99.4 F 83 20 105/62 96 12/27/17 23:46 12/27/17 23:46 12/27/17 23:46 12/27/17 23:46 12/27/17 23:46 - Notes Notes: General Appearance: Well nourished, alert, cooperative, no acute distress, moderate obvious discomfort. Vitals: reviewed, See vital signs table. Extremities: strength 5/5 in all extremities, good pulses in all extremities, some swelling over the lateral malleolus of the right ankle. Normal dorsalis pedis pulse and good capillary refill in all toes. Patient says that her toes are numb yet she is able to feel me touch her toes and move them on exam, no pain in knee or proximal fibula. No edema. Skin: warm, dry, appropriate color, no rash Neuro: speech clear, oriented x 3, normal affect, responds appropriately to questions. Course - Re-evaluation Re-evalutation: 12/28/17 03:21 Patient has an ankle sprain. X-rays negative for fracture. Will place a Velcro ankle splint on her. She is pain with weightbearing and therefore we will give her crutches. She says she cannot use crutches with her left arm because of previous surgery on her biceps tendon. Informed her just use a crutch with the right hand to try to help minimize the amount of weight she appears on her right ankle until she can fill the prescription for a walker that I have written for her. Informed her that she still unable to bear weight after 1 week she needs to call the orthopedist to make a close follow-up appointment. Patient agrees with plan will be discharged home. Dictation of this chart was performed using voice recognition software; therefore, there may be some unintended grammatical errors. - Vital Signs Vital signs: Temp Pulse Resp BP Pulse Ox 99.4 F 83 20 105/62 96 12/27/17 23:46 12/27/17 23:46 12/27/17 23:46 12/27/17 23:46 12/27/17 23:46 Discharge - Discharge Clinical Impression: Ankle sprain Qualifiers: Encounter type: initial encounter Involved ligament of ankle: unspecified ligament Laterality: right Qualified Code(s): S93.401A - Sprain of unspecified ligament of right ankle, initial encounter Condition: Good Disposition: HOME, SELF-CARE Instructions: Oral Narcotic Medication ([facility]) Additional Instructions: Your xray is negative for fracture. It appears you have an ankle sprain. Please do not bear weight on your ankle until it is non painful to do so. Please follow up with the orthopedist if you are still having pain with weight bearing after 1 week. Please return to the ER if you have any further concerns. Prescriptions: Walker [Folding Walker] 1 each MC ASDIR PRN #1 each PRN Reason: Forms: Return to Work Referrals: KENYETTA MAYES MD [ACTIVE STAFF] - Follow up in 3-5 days
--- NOTE | 2017-12-28 02:41 | RADIOLOGY REPORT (SQ) ---
EXAM DESCRIPTION: XR ANKLE 2 VIEWS CLINICAL HISTORY: 32 years Female, injury COMPARISON: None. Findings: Moderate lateral malleolar swelling. Bones, joints, and soft tissues of the XR ANKLE RIGHT 3 VIEWS appear otherwise intact. IMPRESSION: Moderate swelling.
[2017-12-28] MEDS ORDERED: HYDROCODONE/ACETAMINOPHEN 5-325 MG (6 TAB/ER DISP) PO PRN (03:16)
[2017-12-28 03:55] VITALS: BP 106/70
== END 2017-12-28 03:55 | disposition home or self-care (01) ==
LOC: ER 23:40
DX: S93.401A Sprain of unspecified ligament of right ankle, initial encounter (principal); M25.571 Pain in right ankle and joints of right foot; W17.2XXA Fall into hole, initial encounter; F17.200 Nicotine dependence, unspecified, uncomplicated
CPT/HCPCS: 99283; 73610; L1902

== ENCOUNTER 2018-04-30 00:46 | Emergency (ER) | payer MEDICAID ==
[2018-04-30 00:55] VITALS: BP 112/70
--- NOTE | 2018-04-30 01:36 | RADIOLOGY REPORT (SQ) ---
EXAM DESCRIPTION: XR ANKLE 3 OR MORE VIEWS COMPLETED DATE/TME: 04/30/2018 00:00 CLINICAL HISTORY: 32 years, Female, fall injury COMPARISON: None. FINDINGS: 3 views of the right ankle. Diffuse ankle soft tissue edema. No definite acute fracture identified. Normal osseous mineralization. IMPRESSION: 1. No acute fracture identified. Diffuse soft tissue edema of the ankle. 2011 [employer]- All Rights Reserved
== END 2018-04-30 03:58 | disposition left against medical advice (07) ==
LOC: ER 00:46
DX: Z53.21 Procedure and treatment not carried out due to patient leaving prior to being seen by health care provider (principal)

== ENCOUNTER 2018-08-23 13:42 | Emergency (ER) | payer MEDICAID ==
[2018-08-23] MEDS ORDERED: FENTANYL CITRATE INJ/PF 100 MCG/2 ML AMPUL IM ONE (14:54)
--- NOTE | 2018-08-23 14:56 | ER Document Report ---
ED Medical Screen (RME) - General Chief Complaint: Abdominal Pain Stated Complaint: ABDOMINAL PAIN Time Seen by Provider: 08/23/18 14:53 TRAVEL OUTSIDE OF THE [place] IN LAST 30 DAYS: No - HPI Notes: 08/23/18 14:54 Patient is a 33-year-old female with no significant past medical history aside from who presents to the emergency department complaining of lower bilateral pelvic pain that began this morning and is described as feeling "like cramps." Patient states that she has noticed some scant spotting and some discharge, but no foul odor. Patient states that the pains do not radiate otherwise. She is eating and drinking without difficulty. She is urinating normally and having normal bowel movements. Denies any headache, fever, URI, sore throat, chest pain, palpitations, syncope, cough, shortness of breath, wheeze, dyspnea, nausea/vomiting/diarrhea, urinary retention, dysuria, hematuria, loss of control of bowel or bladder, numbness/tingling, saddle anesthesia, muscle paralysis/weakness, or rash. I have treated and performed a rapid initial assessment of this patient. A comprehensive ED assessment and evaluation of the patient, analysis of test results and completion of medical decision making process will be conducted by additional ED providers. PHYSICAL EXAMINATION: GENERAL: Well-appearing, well-nourished and in no acute distress. A&Ox4. Answers questions appropriately. LUNGS: Breath sounds clear to auscultation bilaterally and equal. No wheezes rales or rhonchi. HEART: Regular rate and rhythm without murmurs, rubs, gallops. ABDOMEN: Soft, nondistended abdomen. No guarding, no rebound. Normal bowel sounds present. No CVA tenderness bilaterally. + mild lower pelvic tenderness (cannot elicit thorough abd exam w/o table, however). Extremities: No cyanosis, clubbing, or edema b/l. NEUROLOGICAL: Normal speech, normal gait. PSYCH: Normal mood, normal affect. - Related Data Allergies/Adverse Reactions: NSAIDS (Non-Steroidal Anti-Inflamma Allergy (Verified 08/23/18 13:44) sulfamethoxazole [From Bactrim] Allergy (Verified 08/23/18 13:44) trimethoprim [From Bactrim] Allergy (Verified 08/23/18 13:44) Past Medical History - Past Medical History Cardiac Medical History: Denies: Hx Coronary Artery Disease, Hx Heart Attack, Hx Hypertension Pulmonary Medical History: Denies: Hx Asthma, Hx Bronchitis, Hx COPD, Hx Pneumonia Neurological Medical History: Reports: Hx Migraine. Denies: Hx Cerebrovascular Accident, Hx Seizures Renal/ Medical History: Denies: Hx Peritoneal Dialysis Musculoskeltal Medical History: Reports Hx Arthritis - OA, Reports Hx Musculoskeletal Deformity, Reports Hx Musculoskeletal Trauma Psychiatric Medical History: Reports: Hx Attention Deficit Hyperactivity Disorder, Hx Bipolar Disorder, Hx Depression Past Surgical History: Reports: Hx Section, Hx Orthopedic Surgery - left shoulder/ ankle, Hx Tonsillectomy - & A - Immunizations Hx Diphtheria, Pertussis, Tetanus Vaccination: No Physical Exam - Vital signs Vitals: Temp Pulse Resp BP Pulse Ox 98.3 F 78 17 102/47 L 99 08/23/18 13:58 08/23/18 13:58 08/23/18 13:58 08/23/18 13:58 08/23/18 13:58 Course - Vital Signs Vital signs: Temp Pulse Resp BP Pulse Ox 98.3 F 78 17 102/47 L 99 08/23/18 13:58 08/23/18 13:58 08/23/18 13:58 08/23/18 13:58 08/23/18 13:58
[2018-08-23 15:30] LABS: ABSOLUTE BASOPHILS # (AUTO) 0.1 10^3/uL (0.0-0.2); ABSOLUTE EOSINOPHILS # (AUTO) 0.1 10^3/uL (0.0-0.6); ABSOLUTE LYMPHOCYTES (AUTO) 3.2 10^3/uL (0.5-4.7); ABSOLUTE MONOCYTES (AUTO) 0.9 10^3/uL (0.1-1.4); ABSOLUTE NEUT (AUTO) 7.7 10^3/uL (1.7-8.2); EOSINOPHILS % (AUTO) 0.9 % (0-6); HEMATOCRIT 39.1 % (36.0-47.0); HEMOGLOBIN 13.2 g/dL (12.0-15.5); LYMPHOCYTES % (AUTO) 26.5 % (13-45); MEAN CORPUSCULAR HEMOGLOBIN 29.9 pg (27.0-33.4); MEAN CORPUSCULAR HGB CONC 33.7 g/dL (32.0-36.0); MEAN CORPUSCULAR VOLUME 89 fl (80-97); MONOCYTES % (AUTO) 7.5 % (3-13); PLATELET COUNT 308 10^3/uL (150-450); RED BLOOD COUNT 4.41 10^6/uL (3.72-5.28); RED CELL DISTRIBUTION WIDTH 14.4 % (11.5-14.0); SEGMENTED NEUTROPHILS % (AUTO) 64.1 % (42-78); TOTAL CELLS COUNTED % (AUTO) 100 %
[2018-08-23 15:57] LABS: ALANINE AMINOTRANSFERASE 22 U/L (9-52); ALBUMIN 4.3 g/dL (3.5-5.0); ALKALINE PHOSPHATASE 69 U/L (38-126); ANION GAP 7 (5-19); ASPARTATE AMINO TRANSFERASE 12 U/L (14-36); BILIRUBIN,DIRECT 0.1 mg/dL (0.0-0.4); BILIRUBIN,TOTAL 0.2 mg/dL (0.2-1.3); BLOOD UREA NITROGEN 8 mg/dL (7-20); CALCIUM 9.6 mg/dL (8.4-10.2); CARBON DIOXIDE 30 mmol/L (22-30); CHLORIDE 104 mmol/L (98-107); GLUCOSE 97 mg/dL (75-110); POTASSIUM 4.2 mmol/L (3.6-5.0); SODIUM 140.5 mmol/L (137-145); TOTAL PROTEIN 6.7 g/dL (6.3-8.2)
--- NOTE | 2018-08-23 17:58 | ER Document Report ---
ED General - General Chief Complaint: Abdominal Pain Stated Complaint: ABDOMINAL PAIN Time Seen by Provider: 08/23/18 14:53 Mode of Arrival: Medic Information source: Patient, [facility] Records Notes: 33-year-old female with migraines, bipolar disorder presents with complaint of abdominal cramping that started this morning. Patient's abdominal pain is greater on the left than right. She states that she had some mild spotting of blood yesterday which resolved. Patient denies vaginal discharge but reports a foul odor. Patient's last menstrual period was approximately 3 weeks ago. Patient is concerned because she recently found out that her has been cheating on her. Patient has a previous history of chlamydia which has been treated. Surgical history includes 3 C-sections and a tubal ligation. Patient denies any fever, chills, dysuria, hematuria, chest pain, shortness of breath, previous history of kidney stone. She does admit to nausea without vomiting. TRAVEL OUTSIDE OF THE [place] IN LAST 30 DAYS: No - HPI Onset: This morning Onset/Duration: Gradual, Persistent Quality of pain: Cramping Severity: Moderate Pain Level: 3 Associated symptoms: Nausea. denies: Chest pain, Diarrhea, Fever, Vomiting, Shortness of breath Exacerbated by: Denies Relieved by: Denies Similar symptoms previously: No Recently seen / treated by doctor: No - Related Data Allergies/Adverse Reactions: NSAIDS (Non-Steroidal Anti-Inflamma Allergy (Verified 08/23/18 13:44) sulfamethoxazole [From Bactrim] Allergy (Verified 08/23/18 13:44) trimethoprim [From Bactrim] Allergy (Verified 08/23/18 13:44) Past Medical History - General Information source: Patient - Social History Smoking Status: Never Smoker Frequency of alcohol use: None Drug Abuse: None Lives with: Family Family History: Reviewed & Not Pertinent Patient has suicidal ideation: No Patient has homicidal ideation: No - Past Medical History Cardiac Medical History: Denies: Hx Coronary Artery Disease, Hx Heart Attack, Hx Hypertension Pulmonary Medical History: Denies: Hx Asthma, Hx Bronchitis, Hx COPD, Hx Pneumonia Neurological Medical History: Reports: Hx Migraine. Denies: Hx Cerebrovascular Accident, Hx Seizures Renal/ Medical History: Denies: Hx Peritoneal Dialysis Musculoskeletal Medical History: Reports Hx Arthritis - OA, Reports Hx Musculoskeletal Deformity, Reports Hx Musculoskeletal Trauma Psychiatric Medical History: Reports: Hx Attention Deficit Hyperactivity Disorder, Hx Bipolar Disorder, Hx Depression Past Surgical History: Reports: Hx Section, Hx Orthopedic Surgery - left shoulder/ ankle, Hx Tonsillectomy - & A - Immunizations Hx Diphtheria, Pertussis, Tetanus Vaccination: No Review of Systems - Review of Systems Notes: REVIEW OF SYSTEMS: CONSTITUTIONAL : Denies fever, chills, or sweats. Denies recent illness. Denies weight loss, recent hospitalizations. EENT: Denies visual changes, eye pain. Denies sore throat, oral lesions, difficulty swallowing. CARDIOVASCULAR: Denies chest pain. Denies palpitations. Denies lower extremity edema. RESPIRATORY: Denies cough. Denies shortness of breath, wheezing. GASTROINTESTINAL: Denies abdominal distention. Denies vomiting, or diarrhea. Denies blood in vomitus, stools, or per rectum. Denies black, tarry stools. Denies constipation. GENITOURINARY: Denies difficulty urinating, painful urination, frequency, blood in urine, or vaginal discharge. MUSCULOSKELETAL: Denies back or neck pain or stiffness. Denies joint pain or swelling. SKIN: Denies rash, lesions or sores. HEMATOLOGIC : Denies easy bruising or bleeding. LYMPHATIC: Denies swollen glands. NEUROLOGICAL: Denies confusion or altered mental status. Denies loss of con sciousness. Denies dizziness or lightheadedness. Denies headache. Denies weakness or paralysis. Denies problems difficulty with ambulation, slurred speech. Denies sensory loss, numbness, or tingling. Denies seizures. PSYCHIATRIC: Denies anxiety or stress. Denies depression, suicidal ideation, or homicidal ideation. Denies visual or auditory hallucinations. Physical Exam - Vital signs Vitals: Temp Pulse Resp BP Pulse Ox 98.3 F 78 17 102/47 L 99 08/23/18 13:58 08/23/18 13:58 08/23/18 13:58 08/23/18 13:58 08/23/18 13:58 - Notes Notes: PHYSICAL EXAMINATION: GENERAL: Well-appearing, well-nourished and in no acute distress. HEAD: Atraumatic, normocephalic. EYES: Pupils equal round and reactive to light, extraocular movements intact, conjunctiva are normal. ENT: Nares patent, oropharynx clear without exudates. Moist mucous membranes. NECK: Normal range of motion, supple without lymphadenopathy LUNGS: Breath sounds clear to auscultation bilaterally and equal. No wheezes rales or rhonchi. HEART: Regular rate and rhythm without murmurs ABDOMEN: Left lower quadrant abdominal pain with palpation. No guarding, no rebound. No masses appreciated. Female : Pelvic exam; External genitalia unremarkable. Speculum exam with scant white discharge. Vaginal wall unremarkable. Os closed. No cervical motion tenderness. Left adnexal tenderness or masses appreciated. Swabs obtained for gonorrhea, chlamydia and wet prep. Musculoskeletal: Normal range of motion, no pitting or edema. No cyanosis. NEUROLOGICAL: Cranial nerves grossly intact. Normal speech, normal gait. Normal sensory, motor exams PSYCH: Normal mood, normal affect. SKIN: Warm, Dry, normal turgor, no rashes or lesions noted. Course - Re-evaluation Re-evalutation: 08/24/18 11:34 Microbiology 08/23/18 15:24 Urine Culture - Preliminary Clean Catch Midstream Gram Negative Rods Laboratory 08/23/18 08/23/18 08/23/18 15:11 15:11 15:11 WBC 12.0 H RBC 4.41 Hgb 13.2 Hct 39.1 MCV 89 MCH 29.9 MCHC 33.7 RDW 14.4 H Plt Count 308 Seg Neutrophils % 64.1 Lymphocytes % 26.5 Monocytes % 7.5 Eosinophils % 0.9 Basophils % 1.0 Absolute Neutrophils 7.7 Absolute Lymphocytes 3.2 Absolute Monocytes 0.9 Absolute Eosinophils 0.1 Absolute Basophils 0.1 Sodium 140.5 Potassium 4.2 Chloride 104 Carbon Dioxide 30 Anion Gap 7 BUN 8 Creatinine 0.70 Est GFR ( Amer) > 60 Est GFR (Non-Af Amer) > 60 Glucose 97 Calcium 9.6 Total Bilirubin 0.2 Direct Bilirubin 0.1 Neonat Total Bilirubin Not Reportable Neonat Direct Bilirubin Not Reportable Neonat Indirect Bili Not Reportable AST 12 L ALT 22 Alkaline Phosphatase 69 Total Protein 6.7 Albumin 4.3 Serum HCG, Qual Urine Color Urine Appearance Urine pH Ur Specific [place] Urine Protein Urine Glucose (UA) Urine Ketones Urine Blood Urine Nitrite Urine Bilirubin Urine Urobilinogen Ur Leukocyte Esterase Urine WBC (Auto) Urine RBC (Auto) Urine Bacteria (Auto) Squamous Epi Cells Auto Urine Mucus (Auto) Urine Ascorbic Acid Epi Cells (Wet Prep) Bacteria (Wet Prep) Trichomonas (Wet Prep) Vaginal WBC Vaginal Yeast RPR Chlamydia DNA (PCR) HIV 1&2 Antibody NEGATIVE N.gonorrhoeae DNA (PCR) 08/23/18 08/23/18 08/23/18 15:24 17:51 17:51 WBC RBC Hgb Hct MCV MCH MCHC RDW Plt Count Seg Neutrophils % Lymphocytes % Monocytes % Eosinophils % Basophils % Absolute Neutrophils Absolute Lymphocytes Absolute Monocytes Absolute Eosinophils Absolute Basophils Sodium Potassium Chloride Carbon Dioxide Anion Gap BUN Creatinine Est GFR ( Amer) Est GFR (Non-Af Amer) Glucose Calcium Total Bilirubin Direct Bilirubin Neonat Total Bilirubin Neonat Direct Bilirubin Neonat Indirect Bili AST ALT Alkaline Phosphatase Total Protein Albumin Serum HCG, Qual Urine Color YELLOW Urine Appearance SLIGHTLY-CLOUDY Urine pH 6.0 Ur Specific [place] 1.021 Urine Protein NEGATIVE Urine Glucose (UA) NEGATIVE Urine Ketones NEGATIVE Urine Blood NEGATIVE Urine Nitrite POSITIVE H Urine Bilirubin NEGATIVE Urine Urobilinogen 2.0 H Ur Leukocyte Esterase NEGATIVE Urine WBC (Auto) 1 Urine RBC (Auto) 1 Urine Bacteria (Auto) 3+ Squamous Epi Cells Auto 1 Urine Mucus (Auto) MANY Urine Ascorbic Acid NEGATIVE Epi Cells (Wet Prep) 4+ EPITHELIALS SEEN Bacteria (Wet Prep) 3+ BACTERIA SEEN Trichomonas (Wet Prep) NO TRICHOMONAS SEEN Vaginal WBC RARE WBCS SEEN Vaginal Yeast NO YEAST SEEN RPR Chlamydia DNA (PCR) NOT DETECTED HIV 1&2 Antibody N.gonorrhoeae DNA (PCR) DETECTED H 08/23/18 08/23/18 17:54 17:54 WBC RBC Hgb Hct MCV MCH MCHC RDW Plt Count Seg Neutrophils % Lymphocytes % Monocytes % Eosinophils % Basophils % Absolute Neutrophils Absolute Lymphocytes Absolute Monocytes Absolute Eosinophils Absolute Basophils Sodium Potassium Chloride Carbon Dioxide Anion Gap BUN Creatinine Est GFR ( Amer) Est GFR (Non-Af Amer) Glucose Calcium Total Bilirubin Direct Bilirubin Neonat Total Bilirubin Neonat Direct Bilirubin Neonat Indirect Bili AST ALT Alkaline Phosphatase Total Protein Albumin Serum HCG, Qual NEGATIVE Urine Color Urine Appearance Urine pH Ur Specific [place] Urine Protein Urine Glucose (UA) Urine Ketones Urine Blood Urine Nitrite Urine Bilirubin Urine Urobilinogen Ur Leukocyte Esterase Urine WBC (Auto) Urine RBC (Auto) Urine Bacteria (Auto) Squamous Epi Cells Auto Urine Mucus (Auto) Urine Ascorbic Acid Epi Cells (Wet Prep) Bacteria (Wet Prep) Trichomonas (Wet Prep) Vaginal WBC Vaginal Yeast RPR NONREACTIVE Chlamydia DNA (PCR) HIV 1&2 Antibody N.gonorrhoeae DNA (PCR) Transvaginal US 08/23/18 14:54 IMPRESSION: The endometrium is thickened. There is what may represent a 10 mm endometrial polyp. Temp Pulse Resp BP Pulse Ox 98.3 F 55 L 16 111/67 100 08/23/18 20:00 08/23/18 20:00 08/23/18 20:00 08/23/18 20:00 08/23/18 20:00 33-year-old female presents with low lower quadrant abdominal pain that started this morning. Patient describes it as a cramping severe pain. Vital signs stable upon arrival. Patient does not appear toxic or dehydrated. She is in no acute distress. Patient consistently asking for pain medication and lists the medications that she cannot take which include NSAIDs, tramadol. CBC, CMP are unremarkable. Patient is not . Pelvic exam was significant for thin white discharge. No cervical motion tenderness. Patient states that she is concerned and is requesting to be tested for "everything". She states that she recently found out that her was cheating on her. She would like prophylactic treatment for gonorrhea and chlamydia. Wet prep consistent with bacterial vaginosis. Transvaginal ultrasound shows no evidence of tubo-ovarian abscess. Patient did receive 1 g of azithromycin, 250 mg of IM Rocephin. Patient was prescribed Flagyl and Zofran for home. Patient was evaluated and treated as appropriate for the patient's presenting symptoms and complaint, with consideration of any critical or life threatening conditions that may be associated with their obtained history and exam as noted above. All results were discussed with patient. Patient provided the opportunity to ask questions, and express concerns. Patient was educated on treatments based on their presumed diagnosis as noted above. At this time we will discharge the patient with return precautions and follow-up recommendations. Verbal discharge instructions given a the bedside. Medication warnings reviewed. Patient is in agreement with this plan and has verbalized understanding of return precautions. After careful consideration I feel that that patient can be safely discharged from the emergency department, they were advised to followup with a primary care physician in 2-3 days. Dictation on this chart was performed using voice recognition software and may result in unintended grammatical, spelling, syntax or errors. 08/24/18 11:38 - Vital Signs Vital signs: Temp Pulse Resp BP Pulse Ox 98.3 F 55 L 16 111/67 100 08/23/18 20:00 08/23/18 20:00 08/23/18 20:00 08/23/18 20:00 08/23/18 20:00 - Laboratory Result Diagrams: 08/23/18 15:11 08/23/18 15:11 Laboratory results interpreted by me: 08/23/18 08/23/18 08/23/18 15:11 15:11 15:24 WBC 12.0 H RDW 14.4 H AST 12 L Urine Nitrite POSITIVE H Urine Urobilinogen 2.0 H N.gonorrhoeae DNA (PCR) 08/23/18 17:51 WBC RDW AST Urine Nitrite Urine Urobilinogen N.gonorrhoeae DNA (PCR) DETECTED H - Diagnostic Test Radiology reviewed: Image reviewed, Reports reviewed Discharge - Discharge Clinical Impression: Endometrial polyp, Abdominal pain, left lower quadrant, Bacterial vaginosis, Concern for STD exposure, Gonorrhea Low back pain Qualifiers: Chronicity: acute Back pain laterality: bilateral Sciatica presence: without sciatica Qualified Code(s): M54.5 - Low back pain Condition: Good Disposition: HOME, SELF-CARE Instructions: Abdominal Pain ([facility]), Antinausea Medication ([facility]), Low Back Pain ([facility]), Vaginosis, Bacterial ([facility]) Additional Instructions: You are being treated for bacterial vaginosis, an overgrowth of normal bacteria in the vagina. You are being sent home on an antibiotic called metronidazole. Take exactly as directed. Never drink alcohol while taking this antibiotic. Please return if you develop abdominal pain, fever greater than 101F, some vomiting, or any other symptoms that are concerning to you. You had a normal ultrasound today. Your STD testing is pending. You do have bacterial vaginosis and need to complete a week's worth of Flagyl. Prescriptions: Hydrocodone/Acetaminophen [[place] 5-325 Tablet] 1 each PO Q8H #12 tablet Metronidazole [Flagyl 500 mg Tablet] 500 mg PO BID #14 tablet Ondansetron [Zofran Odt 4 mg Tablet] 1 tab PO Q4H PRN #15 tab.rapdis PRN Reason: For Nausea/Vomiting Referrals: AARON MORAN MD [Primary Care Provider] - Follow up in 3-5 days
--- NOTE | 2018-08-23 18:07 | RADIOLOGY REPORT (SQ) ---
EXAM DESCRIPTION: U/S NON OB PEL TV W/DOPPLER COMPLETED DATE/TIME: 08/23/2018 5:45 pm REASON FOR STUDY: pelvic pain LMP unknown COMPARISON: None. TECHNIQUE: Dynamic and static grayscale images acquired of the pelvis via transvaginal approach and recorded on PACS. Additional selected color Doppler and spectral images recorded. LIMITATIONS: None. FINDINGS: UTERUS: Contour normal. No mass. ENDOMETRIAL STRIPE: Thickened. There is a 10 mm echogenic focus within the endometrium. CERVIX: 3 cm. No nabothian cysts. RIGHT OVARY AND DOPPLER: Normal size. No worrisome masses. Normal arterial vascular flow without evid ence for torsion. LEFT OVARY AND DOPPLER: Normal size. No worrisome masses. Normal arterial vascular flow without evide nce for torsion. FREE FLUID: None noted. OTHER: No other significant finding. MEASUREMENTS: UTERUS: 10 x 4.5 x 5.2 cm. ENDOMETRIAL STRIPE: 19 mm. RIGHT OVARY: 2.8 x 1.7 x 2.7 cm. LEFT OVARY: 3.5 x 1.6 x 2.2 cm. IMPRESSION: The endometrium is thickened. There is what may represent a 10 mm endometrial polyp. TECHNICAL DOCUMENTATION: JOB ID: [id number] [employer]- All Rights Reserved Rev Reading location - IP/workstation name: [email or web address]
[2018-08-23 18:10] LABS: BACTERIA (WET MOUNT) 3+ BACTERIA SEEN; EPITHELIALS (WET MOUNT) 4+ EPITHELIALS SEEN; T.VAGINALIS (WET MOUNT) NO TRICHOMONAS SEEN; WBCS (WET MOUNT) RARE WBCS SEEN; YEAST (WET MOUNT) NO YEAST SEEN
[2018-08-23 18:10] LABS: APPEARANCE,URINE SLIGHTLY-CLOUDY; BILIRUBIN,URINE NEGATIVE (NEGATIVE); COLOR,URINE YELLOW; GLUCOSE, URINE NEGATIVE (NEGATIVE); KETONES,URINE NEGATIVE (NEGATIVE); LEUKOCYTE ESTERASE,URINE NEGATIVE (NEGATIVE); NITRITE,URINE POSITIVE (NEGATIVE); PROTEIN,URINE NEGATIVE (NEGATIVE); URINE SPECIFIC GRAVITY 1.021
[2018-08-23] MEDS ORDERED: CEFTRIAXONE INJ 250 MG VIAL IM ONE (18:41)
[2018-08-23] MEDS ORDERED: LIDOCAINE 1% INJ-PF (10 MG/ML) 30 ML SDV INJ ONE (18:41)
[2018-08-23] MEDS ORDERED: METRONIDAZOLE 500 MG TABLET PO ONE (18:42)
[2018-08-23] MEDS ORDERED: AZITHROMYCIN 1 GM SUSP PACKET PO ONE (18:42)
[2018-08-23] MEDS ORDERED: OXYCODONE-ACETAMINOPHEN 5-325 MG TABLET PO ONE (18:42)
[2018-08-23] MEDS ORDERED: ONDANSETRON HCL INJ/PF 4 MG/2 ML SDV IV ONE (18:42)
[2018-08-23 19:29] LABS: CHLAM PCR NOT DETECTED (NOT DETECT); GON PCR DETECTED (NOT DETECT)
[2018-08-23 20:01] VITALS: BP 111/67
[2018-08-26 20:36] LABS: HSV I DNA Negative (Negative)
[2018-08-27 08:38] LABS: HSV II DNA Negative (Negative)
== END 2018-08-23 20:02 | disposition home or self-care (01) ==
LOC: ER 13:42
DX: N84.0 Polyp of corpus uteri (principal); R10.32 Left lower quadrant pain; N76.0 Acute vaginitis; B96.89 Other specified bacterial agents as the cause of diseases classified elsewhere; A54.9 Gonococcal infection, unspecified; M54.5 Low back pain; Z20.2 Contact with and (suspected) exposure to infections with a predominantly sexual mode of transmission; R10.9 Unspecified abdominal pain; R11.0 Nausea; R10.30 Lower abdominal pain, unspecified
CPT/HCPCS: 99284; 96372; 87529; 36415; 87086; 87210; 84703; 85025; 87088; 86592; 80053; 81001; 86701; 87186; 87491; 87591; 76830; 93976; J3010; J3490 ×2; Q0144; J0696

== ENCOUNTER 2018-10-23 12:09 | Emergency (ER) | payer MEDICAID ==
[2018-10-23 12:19] VITALS: BP 115/62
[2018-10-23] MEDS ORDERED: DIPH/PERTUSS(ACELL)/TETANUS VAC/PF 0.5 ML SYR (>=10YO) IM ONE (12:35)
--- NOTE | 2018-10-23 12:52 | ER Document Report ---
ED Extremity Problem, Lower - General Chief Complaint: Knee Pain Stated Complaint: RIGHT KNEE INJURY Time Seen by Provider: 10/23/18 12:27 Primary Care Provider: [facility] [Provider Group] - Follow up as needed AARON MORAN MD [Primary Care Provider] - Follow up as needed Mode of Arrival: Wheelchair Information source: Patient Notes: 33-year-old female presents to ED for complaint of pain to her right knee hip and ankle after she fell down 2 stairs about an hour before coming to the ED. She states she fell down landing on her knee and felt a popping sensation in her knee. She states she also twisted her right ankle and had pain in her right hip. She has small abrasions to the lateral aspect of the right knee. She states her tetanus is not up-to-date and she would like to get one. Patient is alert oriented respirations regular and unlabored speaking in full sentences and is in no acute distress. She states she took Tylenol at home and is unable to take NSAIDs due to anaphylactic reaction. TRAVEL OUTSIDE OF THE [place] IN LAST 30 DAYS: No - HPI Patient complains to provider of: Injury, Pain Location: Ankle, Hip, Knee Occurred: Just prior to arrival Where: Home, Outdoors Onset/Duration: Sudden Quality of pain: Sharp - 0 11 it is irrelevant Severity: Moderate Pain Level: 4 - Fall down Context: Fell Recent injury: Yes - I said he fell Associated symptoms: Painful ambulation Exacerbated by: Movement Relieved by: Nothing - Related Data Allergies/Adverse Reactions: NSAIDS (Non-Steroidal Anti-Inflamma Allergy (Verified 10/23/18 12:16) sulfamethoxazole [From Bactrim] Allergy (Verified 10/23/18 12:16) trimethoprim [From Bactrim] Allergy (Verified 10/23/18 12:16) Past Medical History - General Information source: Patient - Social History Smoking Status: Former Smoker Cigarette use (# per day): No Chew tobacco use (# tins/day): No Smoking Education Provided: No Frequency of alcohol use: None Drug Abuse: None Lives with: Friend Family History: Reviewed & Not Pertinent Patient has suicidal ideation: No Patient has homicidal ideation: No - Past Medical History Cardiac Medical History: Reports: None Pulmonary Medical History: Reports: None EENT Medical History: Reports: None Neurological Medical History: Reports: Hx Migraine Endocrine Medical History: Reports: None Renal/ Medical History: Reports: None Malignancy Medical History: Reports: None GI Medical History: Reports: None Musculoskeletal Medical History: Reports Hx Arthritis - OA, Reports Hx Musculoskeletal Deformity, Reports Hx Musculoskeletal Trauma - Fractured left ankle torn biceps left arm Skin Medical History: Reports None Psychiatric Medical History: Reports: Hx Attention Deficit Hyperactivity Disorder, Hx Bipolar Disorder, Hx Depression Traumatic Medical History: Reports: Hx Fractures - Left ankle Infectious Medical History: Reports: None Past Surgical History: Reports: Hx Adenoidectomy, Hx Section, Hx Orthopedic Surgery - Left torn biceps repair/ ankle fracture repair, Hx Tonsillectomy, Hx Tubal Ligation - Immunizations Immunizations up to date: Yes Hx Diphtheria, Pertussis, Tetanus Vaccination: Yes - 10/23/2018 Review of Systems - Review of Systems Constitutional: No symptoms reported EENT: No symptoms reported Cardiovascular: No symptoms reported Respiratory: No symptoms reported Gastrointestinal: No symptoms reported Genitourinary: No symptoms reported Female Genitourinary: No symptoms reported Musculoskeletal: Joint pain - Right knee ankle and hip Skin: No symptoms reported Hematologic/Lymphatic: No symptoms reported Neurological/Psychological: No symptoms reported -: Yes All other systems reviewed and negative Physical Exam - Vital signs Vitals: Temp Pulse Resp BP Pulse Ox 97.9 F 63 18 115/62 100 10/23/18 12:17 10/23/18 12:17 10/23/18 12:17 10/23/18 12:17 10/23/18 12:17 Interpretation: Normal - General General appearance: Appears well, Alert - HEENT Head: Normocephalic, Atraumatic Eyes: Normal Pupils: PERRL - Respiratory Respiratory status: No respiratory distress Chest status: Nontender Breath sounds: Normal Chest palpation: Normal - Cardiovascular Rhythm: Regular Heart sounds: Normal auscultation Murmur: No - Abdominal Inspection: Normal Distension: No distension Bowel sounds: Normal Tenderness: Nontender Organomegaly: No organomegaly - Back Back: Normal, Nontender - Extremities General upper extremity: Normal inspection, Nontender, Normal color, Normal ROM, Normal temperature General lower extremity: Normal color, Normal temperature, Normal weight bearing. No: Brooklynn's sign Hip: Tender, Pain with ROM. No: Abrasion, Deformity, Dislocation, Ecchymosis, Instability, Laceration, Unable to bear weight - Painful to walk Thigh: Tender, Abrasion Knee: Tender, Abrasion, Pain with ROM, Patellar tendon intact, Tender joint line. No: Deformity, Dislocation, Drawer's test instability, Ecchymosis, Instability, Joint effusion, Laceration - Painful, Popliteal fossa tender, Unable to bear weight Calf: Normal Ankle: Tender. No: Abrasion, Deformity, Ecchymosis, Edema, Instability, Laceration, Limited ROM, Positive Carlisle's test, Unable to bear weight Foot: Normal, Nontender - Neurological Neuro grossly intact: Yes Cognition: Normal Orientation: AAOx4 [place] Coma Scale Eye Opening: Spontaneous [place] Coma Scale Verbal: Oriented [place] Coma Scale Motor: Obeys Commands [place] Coma Scale Total: 15 Speech: Normal Motor strength normal: LUE, RUE, LLE, RLE Sensory: Normal - Psychological Associated symptoms: Normal affect, Normal mood - Skin Skin Temperature: Warm Skin Moisture: Dry Skin Color: Normal Course - Re-evaluation Re-evalutation: 10/23/18 21:19 Negative x-rays. Patient was able to walk but with a limp. She did request an Dangelo wrap and crutches. - Vital Signs Vital signs: Temp Pulse Resp BP Pulse Ox 98.6 F 66 18 115/62 96 10/23/18 14:04 10/23/18 14:04 10/23/18 14:04 10/23/18 12:17 10/23/18 14:04 - Diagnostic Test Radiology reviewed: Image reviewed, Reports reviewed Procedures - Immobilization Right Knee Time completed: 13:45 Immobilizer type: Dangelo wrap Performed by: PCT Post-Proc Neuro Vasc Exam: Normal Alignment checked and good: Yes Discharge - Discharge Clinical Impression: Fall (on) (from) other stairs and steps, initial encounter, Pain in right hip Contusion, knee and lower leg Qualifiers: Encounter type: initial encounter Laterality: right Qualified Code(s): S80.01XA - Contusion of right knee, initial encounter Pain in right ankle Qualifiers: Chronicity: acute Qualified Code(s): M25.571 - Pain in right ankle and joints of right foot Abrasion of right leg Qualifiers: Encounter type: initial encounter Qualified Code(s): S80.811A - Abrasion, right lower leg, initial encounter Disposition: HOME, SELF-CARE Additional Instructions: CONTUSION: Your injury has resulted in a contusion -- a crushing of the deep tissues. No injury to important structures was detected during the physician's exam. Contusions vary in the amount of pain they cause, and in the length of time required for healing. Typically, the area will become bruised, and will remain painful to touch for two or three weeks. However, most patients are back to working and playing within a few days. After the initial period of rest and cold-packs, your symptoms (together with the doctor's recommendations) will determine how rapidly you can get back to full activity. Usually this means "do what feels okay, but don't do things that hurt." If re-examination was recommended, it's important to follow up as instructed. Call the doctor or return any time if pain increases, if swelling becomes severe, if you develop numbness or weakness in an injured extremity, or if any other alarming symptoms occur. ABRASIONS: An abrasion is a scraping injury of the skin. Some scarring may result. The seriousness of an abrasion is not always obvious at first. Hidden tissue damage may be present and infection may occur despite proper care. Complete healing may take from ten days to as long as a month. The healing time depends on the depth of the abrasion, and on the amount of crushing of underlying tissues from the injury. Keep the wound and dressing clean. Do not shower or bathe the area until okayed by the doctor. If the dressing gets wet, remove it and blot the wound dry, then reapply a clean dressing. Dressings should be changed every day. Sunscreen should be used for six months after the skin is healed. If any signs of infection occur (swelling, redness, increasing tenderness, red streaks, profuse purulent drainage from the abrasion, tender lumps in the armpit or groin above the abrasion, or fever), see the doctor immediately. USE OF TYLENOL (ACETAMINOPHEN): Acetaminophen may be taken for pain relief or fever control. It's much safer than aspirin, offering a wider range of "safe" dosages. It is safe during . Some brand names are Tylenol, Panadol, Datril, Anacin 3, Tempra, and Liquiprin. Acetaminophen can be repeated every four hours. The following are maximum recommended dosages: WEIGHT Dose Drops Elixir Chewable(80mg) (LBS.) drprs=droppers tsp=teaspoon 6 40 mg 0.4 ml (1/2) 6-11 80 mg 0.8 ml (full) tsp 1 tab 12-16 120 mg 1 1/2 drprs 3/4 tsp 1 1/2 tabs 17-23 160 mg 2 drprs 1 tsp 2 tabs 24-30 240 mg 3 drprs 1 1/2 tsp 3 tabs 30-35 320 mg 2 tsp 4 tabs 36-41 360 mg 2 1/4 tsp 4 1/2 tabs 42-47 400 mg 2 1/2 tsp 5 tabs 48-53 480 mg 3 tsp 6 tabs 54-59 520 mg 3 1/4 tsp 6 1/2 tabs 60-64 560 mg 3 1/2 tsp 7 tabs 65-70 600 mg 3 3/4 tsp 7 1/2 tabs 71-76 640 mg 4 tsp 8 tabs 77-82 720 mg 4 1/2 tsp 9 tabs 83-88 800 mg 5 tsp 10 tabs >89 pounds or adults 650 mg to 900 mg Acetaminophen can be repeated every four hours. Maximum dose not to exceed 4000 mg a day. These maximum recommended dosages are slightly higher than the dosages written on the product container, but these dosages are very safe and below the toxic dosage for acetaminophen. DANGELO WRAP: A compression dressing (dangelo wrap) has been placed. This helps hold the area still. It limits swelling and internal bleeding. The wrap should be comfortably snug -- not tight. You should feel a sense of pressure, but not severe pain under the wrap. Unless the physician tells you otherwise, you can adjust the wrap for comfort. If the wrap causes symptoms suggesting it's too tight -- uncomfortable pressure, swelling or discoloration beyond the wrap, numbness, or severe pain -- you must loosen the wrap. If these symptoms don't resolve promptly, return for re-evaluation. USE OF CRUTCHES: The doctor has recommended that you not bear weight at this time. You will need to use crutches. Adjust the crutches so the tops come to about two inches under the armpit while you are standing upright. Use your hands -- not your armpits -- to support your weight. To get into a chair, support yourself with one crutch on the injured side. Hold the chair with the other hand, then lower yourself while putting all your weight on the good leg. Going up stairs is `good leg up, step up, then bring up crutches and bad leg.' Down stairs is `bad leg and crutches down, then bring good leg down.' If you develop numbness or swelling in an arm or hand, you are using the crutches incorrectly. Return if you are having any problems with the crutches. ICE & ELEVATION: Apply ice packs frequently against the painful area. Many different schedules are recommended, such as "20 minutes on, 20 minutes off" or "one hour ice, two hours rest." If you need to work, you may need to go longer between ice treatments. You should plan to have the area ice packed AT LEAST one-fourth of the time. The ice should be applied over the wrap, tape, or splint, or over a layer of cloth -- not directly against the skin. Some ice bags have a built-in cloth and can be put directly on the skin. Your injured part should be elevated as much as possible over the next 48 hours. Try to keep the injury above the level of the heart. Avoid use of the injured area. Elevation and rest will decrease the swelling. FOLLOW-UP CARE: If you have been referred to a physician for follow-up care, call the physicians office for an appointment as you were instructed or within the next two days. If you experience worsening or a significant change in your symptoms, notify the physician immediately or return to the Emergency Department at any time for re-evaluation. Referrals: AARON MORAN MD [Primary Care Provider] - Follow up as needed [facility] [Provider Group] - Follow up as needed
--- NOTE | 2018-10-23 13:21 | RADIOLOGY REPORT (SQ) ---
EXAM DESCRIPTION: ANKLE RIGHT COMPLETE COMPLETED DATE/TIME: 10/23/2018 1:14 pm REASON FOR STUDY: fall down steps pain to knee hip and ankle right COMPARISON: 04/30/2018 NUMBER OF VIEWS: Three views. TECHNIQUE: AP, lateral, and oblique radiographic images acquired of the right ankle. LIMITATIONS: None. FINDINGS: MINERALIZATION: Normal. BONES: No acute fracture or dislocation. No worrisome bone lesions. Small posterior calcaneal enthe sophyte. JOINTS: No significant effusion. Ankle mortise is preserved. SOFT TISSUES: No soft tissue swelling. No foreign body. OTHER: No other significant finding. IMPRESSION: No evidence of acute bony abnormality. TECHNICAL DOCUMENTATION: JOB ID: [id number] [employer]- All Rights Reserved Reading location - IP/workstation name: [email or web address]
--- NOTE | 2018-10-23 13:22 | RADIOLOGY REPORT (SQ) ---
EXAM DESCRIPTION: KNEE RIGHT 4 VIEWS COMPLETED DATE/TIME: 10/23/2018 1:14 pm REASON FOR STUDY: fall down steps pain to knee hip and ankle right COMPARISON: None. NUMBER OF VIEWS: Four views. TECHNIQUE: AP, lateral, and both oblique radiographic images acquired of the right knee. LIMITATIONS: None. FINDINGS: MINERALIZATION: Normal. BONES: No acute fracture or dislocation. No worrisome bone lesions. JOINT: No effusion. SOFT TISSUES: No soft tissue swelling. No radio-opaque foreign body. OTHER: No other significant finding. IMPRESSION: NEGATIVE STUDY OF THE RIGHT KNEE. NO RADIOGRAPHIC EVIDENCE OF ACUTE INJURY. TECHNICAL DOCUMENTATION: JOB ID: [id number] [employer]- All Rights Reserved Reading location - IP/workstation name: [email or web address]
--- NOTE | 2018-10-23 13:23 | RADIOLOGY REPORT (SQ) ---
EXAM DESCRIPTION: HIP RIGHT AP/LATERAL COMPLETED DATE/TIME: 10/23/2018 1:14 pm REASON FOR STUDY: fall down steps pain to knee hip and ankle right COMPARISON: None. NUMBER OF VIEWS: Two views. TECHNIQUE: AP pelvis and additional frog-leg view of the right hip. LIMITATIONS: None. FINDINGS: MINERALIZATION: Normal. RIGHT HIP: No fracture or dislocation. No worrisome bone lesions. LEFT HIP: No fracture or dislocation. No worrisome bone lesions. PUBIS AND ISCHIUM: No fracture. PELVIS: No fracture. SACRUM: No fracture or dislocation. No worrisome bone lesions. LOWER LUMBAR SPINE: No fracture or dislocation. No worrisome bone lesions. No significant disc disea se. SOFT TISSUES: No findings. OTHER: Tampon overlies pelvis. IMPRESSION: NEGATIVE STUDY OF THE RIGHT HIP. NO RADIOGRAPHIC EVIDENCE OF ACUTE INJURY. TECHNICAL DOCUMENTATION: JOB ID: [id number] [employer]- All Rights Reserved Reading location - IP/workstation name: [email or web address]
== END 2018-10-23 14:09 | disposition home or self-care (01) ==
LOC: ER 12:09
DX: S80.01XA Contusion of right knee, initial encounter (principal); S70.319A Abrasion, unspecified thigh, initial encounter; M25.561 Pain in right knee; M25.551 Pain in right hip; M25.571 Pain in right ankle and joints of right foot; W10.9XXA Fall (on) (from) unspecified stairs and steps, initial encounter; Y92.009 Unspecified place in unspecified non-institutional (private) residence as the place of occurrence of the external cause; Z87.892 Personal history of anaphylaxis; Z88.8 Allergy status to other drugs, medicaments and biological substances; Z88.1 Allergy status to other antibiotic agents; Z87.891 Personal history of nicotine dependence
CPT/HCPCS: 90471; 90715; 99283

== ENCOUNTER 2018-11-19 19:03 | Emergency (ER) | payer OTHER, MEDICAID ==
[2018-11-19] MEDS ORDERED: NORMAL SALINE 1000 ML 1,000 ML IV ONE (20:49)
[2018-11-19] MEDS ORDERED: ONDANSETRON HCL INJ/PF 4 MG/2 ML SDV IV ONE (20:53)
[2018-11-19] MEDS ORDERED: LORAZEPAM INJ 2 MG/1 ML VIAL IV ONE (20:53)
[2018-11-19] MEDS ORDERED: MORPHINE SULFATE 10 MG/ML INJ IV ONE (20:53)
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
[2018-11-19 22:07] LABS: ABSOLUTE BASOPHILS # (AUTO) 0.1 10^3/uL (0.0-0.2); ABSOLUTE EOSINOPHILS # (AUTO) 0.2 10^3/uL (0.0-0.6); ABSOLUTE LYMPHOCYTES (AUTO) 4.6 10^3/uL (0.5-4.7); ABSOLUTE MONOCYTES (AUTO) 0.8 10^3/uL (0.1-1.4); ABSOLUTE NEUT (AUTO) 6.3 10^3/uL (1.7-8.2); BASOPHILS % (AUTO) 0.9 % (0-2); EOSINOPHILS % (AUTO) 1.5 % (0-6); HEMATOCRIT 38.9 % (36.0-47.0); HEMOGLOBIN 13.1 g/dL (12.0-15.5); LYMPHOCYTES % (AUTO) 38.1 % (13-45); MEAN CORPUSCULAR HEMOGLOBIN 30.1 pg (27.0-33.4); MEAN CORPUSCULAR HGB CONC 33.6 g/dL (32.0-36.0); MEAN CORPUSCULAR VOLUME 90 fl (80-97); MONOCYTES % (AUTO) 6.5 % (3-13); PLATELET COUNT 280 10^3/uL (150-450); RED BLOOD COUNT 4.34 10^6/uL (3.72-5.28); RED CELL DISTRIBUTION WIDTH 14.3 % (11.5-14.0); TOTAL CELLS COUNTED % (AUTO) 100 %
[2018-11-19 22:28] LABS: ALANINE AMINOTRANSFERASE 26 U/L (9-52); ALBUMIN 4.3 g/dL (3.5-5.0); ALKALINE PHOSPHATASE 75 U/L (38-126); ANION GAP 5 (5-19); ASPARTATE AMINO TRANSFERASE 19 U/L (14-36); BILIRUBIN,DIRECT 0.3 mg/dL (0.0-0.4); BILIRUBIN,TOTAL 0.4 mg/dL (0.2-1.3); BLOOD UREA NITROGEN 11 mg/dL (7-20); CALCIUM 9.7 mg/dL (8.4-10.2); CARBON DIOXIDE 30 mmol/L (22-30); CHLORIDE 105 mmol/L (98-107); GLUCOSE 89 mg/dL (75-110); SODIUM 140.4 mmol/L (137-145); TOTAL PROTEIN 7.6 g/dL (6.3-8.2)
[2018-11-19 23:29] LABS: APPEARANCE,URINE CLEAR; BILIRUBIN,URINE NEGATIVE (NEGATIVE); COLOR,URINE STRAW; GLUCOSE, URINE NEGATIVE (NEGATIVE); KETONES,URINE NEGATIVE (NEGATIVE); LEUKOCYTE ESTERASE,URINE NEGATIVE (NEGATIVE); NITRITE,URINE NEGATIVE (NEGATIVE); PROTEIN,URINE NEGATIVE (NEGATIVE); URINE SPECIFIC GRAVITY 1.006; UROBILINOGEN,URINE NEGATIVE mg/dL (<2.0)
[2018-11-20] MEDS ORDERED: HYDROCODONE/ACETAMINOPHEN 5-325 MG (6 TAB/ER DISP) PO PRN (00:11)
[2018-11-20 00:24] VITALS: BP 103/74
--- NOTE | 2018-11-20 10:17 | EKG REPORT ---
SEVERITY:- OTHERWISE NORMAL ECG - SINUS BRADYCARDIA : Confirmed by: Mitra Callahan MD 20-Nov-2018 10:16:01
== END 2018-11-20 00:27 | disposition home or self-care (01) ==
LOC: ER 19:03
DX: S40.812A Abrasion of left upper arm, initial encounter (principal); M79.10 Myalgia, unspecified site; F41.9 Anxiety disorder, unspecified; M79.602 Pain in left arm; M54.5 Low back pain; M54.2 Cervicalgia; R55 Syncope and collapse; V87.7XXA Person injured in collision between other specified motor vehicles (traffic), initial encounter; F17.200 Nicotine dependence, unspecified, uncomplicated
CPT/HCPCS: 93005; 99284; 96361; 96374; 96375; 36415; 85025; 81025; 80053; 81001; 71046; 73080; 72110; 72070; 70450; 72125; 93010; J2270; J2060; J2405; J7030

== ENCOUNTER 2019-01-22 05:49 | Day surgery (SDC) | payer MEDICAID, OTHER ==
[2019-01-18 10:28] LABS: APPEARANCE,URINE CLEAR; BILIRUBIN,URINE NEGATIVE (NEGATIVE); COLOR,URINE YELLOW; GLUCOSE, URINE NEGATIVE (NEGATIVE); KETONES,URINE NEGATIVE (NEGATIVE); LEUKOCYTE ESTERASE,URINE NEGATIVE (NEGATIVE); NITRITE,URINE POSITIVE (NEGATIVE); PROTEIN,URINE NEGATIVE (NEGATIVE); URINE SPECIFIC GRAVITY 1.014; UROBILINOGEN,URINE NEGATIVE mg/dL (<2.0)
[2019-01-18 10:54] LABS: HEMATOCRIT 41.7 % (36.0-47.0); HEMOGLOBIN 13.7 g/dL (12.0-15.5); MEAN CORPUSCULAR HEMOGLOBIN 29.6 pg (27.0-33.4); MEAN CORPUSCULAR HGB CONC 32.8 g/dL (32.0-36.0); MEAN CORPUSCULAR VOLUME 90 fl (80-97); PLATELET COUNT 298 10^3/uL (150-450); RED BLOOD COUNT 4.63 10^6/uL (3.72-5.28); RED CELL DISTRIBUTION WIDTH 13.7 % (11.5-14.0); WHITE BLOOD COUNT 11.2 10^3/uL (4.0-10.5)
[2019-01-22] MEDS ORDERED: MIDAZOLAM 2 MG/2 ML INJ ONE (06:38)
[2019-01-22] MEDS ORDERED: PROPOFOL INJ 200 MG/20 ML VIAL IV ONE (06:38)
[2019-01-22] MEDS ORDERED: FENTANYL CITRATE INJ/PF 100 MCG/2 ML AMPUL ONE (06:38)
[2019-01-22] MEDS ORDERED: SCOPOLAMINE HYDROBROMIDE 1.5 MG PATCH.TD72 ONE (07:18)
[2019-01-22] MEDS ORDERED: ALBUTEROL SULFATE 0.083% NEB 2.5 MG/3 ML AMPUL NEB ONE (07:18)
[2019-01-22] MEDS ORDERED: FAMOTIDINE INJ/PF 20 MG/2 ML SDV IV ONE (07:18)
[2019-01-22] MEDS ORDERED: DIPHENHYDRAMINE HCL 50 MG/ML VIAL IV PRN (08:22)
[2019-01-22] MEDS ORDERED: MEPERIDINE HCL/PF INJ 25 MG/1 ML DISP.SYRIN IV PRN (08:22)
[2019-01-22] MEDS ORDERED: OXYCODONE-ACETAMINOPHEN 5-325 MG TABLET PO PRN ×4 (08:22→08:25)
[2019-01-22] MEDS ORDERED: ONDANSETRON HCL INJ/PF 4 MG/2 ML SDV IV PRN (08:22)
[2019-01-22] MEDS ORDERED: FENTANYL CITRATE INJ/PF 100 MCG/2 ML AMPUL IV PRN ×3 (08:22)
[2019-01-22] MEDS ORDERED: PROMETHAZINE HCL INJ 25 MG/1 ML VIAL IV PRN ×2 (08:22)
[2019-01-22] MEDS ORDERED: KETOROLAC TROMETHAMINE INJ/PF 30 MG/1 ML SDV IV PRN (08:25)
[2019-01-22] MEDS ORDERED: IBUPROFEN 800 MG TABLET PO PRN (08:25)
[2019-01-22] MEDS ORDERED: RINGERS SOLUTION,LACTATED 1,000 ML IV PRN (08:25)
--- NOTE | 2019-01-22 08:29 | Operative Report ---
Operative Report DATE OF SURGERY: 01/22/19 PREOPERATIVE DIAGNOSIS: Endometrial thickening possible polyp POSTOPERATIVE DIAGNOSIS: Same OPERATION: D&C with hysteroscopy SURGEON: MARIA R DE LA CRUZ ANESTHESIA: GA TISSUE REMOVED OR ALTERED: Uterine cavity COMPLICATIONS: None ESTIMATED BLOOD LOSS: Minimal INTRAOPERATIVE FINDINGS: Large amount tissue in the uterine cavity. After the D&C the uterine cavity was empty. PROCEDURE: Patient was taken to the OR and placed in supine position. General anesthesia was induced. She is placed in a dorsolithotomy position using Jd stirrups. Her perineum and vagina were prepared and draped in sterile fashion. She had just voided and did not need catheterization. A weighted speculum was placed in the vagina and the anterior lip cervix grasped with a tenaculum. The uterus sounded to 9 cm before and after the case. The cervix was gently dilated end ocervical curettings were obtained. Hysteroscopy was performed and showed large amount tissue in the uterine cavity. Stone polyp forceps were removed using the large amount of the polyp type tissue. The curettage was then used to curette all 4 uterine castillo. Repeat hysteroscopy showed a empty uterus cavity. Bleeding was minimal all instruments were removed. She is placed back in supine position taken to recovery room in stable condition.
--- NOTE | 2019-01-22 08:33 | Discharge Summary ---
Discharge Summary (SDC) - Discharge Final Diagnosis: Abnormal bleeding with uterine polyp Date of Surgery: 01/22/19 Discharge Date: 01/22/19 Condition: Good Referrals: BOBBY AMADOR NP [Primary Care Provider] - Discharge Diet: Regular Discharge Activity: Balance Activity w/Rest, Pelvic Rest Report the Following to Your Physician Immediately: Fever over 101 Degrees
[2019-01-22] MEDS: FENTANYL CITRATE INJ/PF 100 MCG/2 ML AMPUL ONE ×2 (08:35→08:40)
[2019-01-22] MEDS ORDERED: OXYCODONE-ACETAMINOPHEN 5-325 MG TABLET ONE (09:18)
[2019-01-22 11:08] VITALS: BP 91/66
[2019-01-22] MEDS ORDERED: DEXAMETHASONE SOD PHOSPHATE INJ 4 MG/1 ML VIAL ONE (13:07)
[2019-01-22] MEDS ORDERED: LIDOCAINE 2% INJ-PF (20 MG/ML) 2 ML AMPUL ONE (13:07)
[2019-01-22] MEDS ORDERED: ONDANSETRON HCL INJ/PF 4 MG/2 ML SDV ONE (13:07)
== END 2019-01-22 10:45 | disposition home or self-care (01) ==
LOC: OROUT 05:49
PROVIDERS: ATTEND Obstetrics & Gynecology
DX: N84.0 Polyp of corpus uteri (principal); Z79.899 Other long term (current) drug therapy; Z87.891 Personal history of nicotine dependence; N94.5 Secondary dysmenorrhea; D64.9 Anemia, unspecified; Z88.2 Allergy status to sulfonamides
CPT/HCPCS: 36415; 85027; 81025; 81001; 88305 ×2; 00952; 58558; J2250; J1100; J3010; J3490 ×2; J2405; J2704; S0028; 952

== ENCOUNTER 2019-01-23 15:47 | Emergency (ER) | payer MEDICAID ==
[2019-01-23] MEDS ORDERED: NORMAL SALINE 1000 ML 1,000 ML IV ONE (17:48)
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
[2019-01-23 18:41] LABS: ABSOLUTE BASOPHILS # (AUTO) 0.1 10^3/uL (0.0-0.2); ABSOLUTE EOSINOPHILS # (AUTO) 0.1 10^3/uL (0.0-0.6); ABSOLUTE LYMPHOCYTES (AUTO) 5.9 10^3/uL (0.5-4.7); ABSOLUTE NEUT (AUTO) 6.1 10^3/uL (1.7-8.2); BASOPHILS % (AUTO) 1.1 % (0-2); EOSINOPHILS % (AUTO) 0.9 % (0-6); HEMATOCRIT 36.5 % (36.0-47.0); HEMOGLOBIN 11.9 g/dL (12.0-15.5); LYMPHOCYTES % (AUTO) 44.2 % (13-45); MEAN CORPUSCULAR HEMOGLOBIN 29.5 pg (27.0-33.4); MEAN CORPUSCULAR HGB CONC 32.6 g/dL (32.0-36.0); MEAN CORPUSCULAR VOLUME 91 fl (80-97); MONOCYTES % (AUTO) 7.7 % (3-13); PLATELET COUNT 258 10^3/uL (150-450); RED BLOOD COUNT 4.03 10^6/uL (3.72-5.28); RED CELL DISTRIBUTION WIDTH 13.9 % (11.5-14.0); SEGMENTED NEUTROPHILS % (AUTO) 46.1 % (42-78); TOTAL CELLS COUNTED % (AUTO) 100 %; WHITE BLOOD COUNT 13.3 10^3/uL (4.0-10.5)
[2019-01-23 18:57] LABS: APPEARANCE,URINE CLOUDY; BILIRUBIN,URINE NEGATIVE (NEGATIVE); COLOR,URINE YELLOW; GLUCOSE, URINE NEGATIVE (NEGATIVE); KETONES,URINE NEGATIVE (NEGATIVE); LEUKOCYTE ESTERASE,URINE NEGATIVE (NEGATIVE); NITRITE,URINE NEGATIVE (NEGATIVE); PROTEIN,URINE NEGATIVE (NEGATIVE); UROBILINOGEN,URINE NEGATIVE mg/dL (<2.0)
[2019-01-23 18:59] LABS: ALANINE AMINOTRANSFERASE 22 U/L (9-52); ALBUMIN 4.2 g/dL (3.5-5.0); ALKALINE PHOSPHATASE 63 U/L (38-126); ANION GAP 8 (5-19); ASPARTATE AMINO TRANSFERASE 16 U/L (14-36); BILIRUBIN,DIRECT 0.1 mg/dL (0.0-0.4); BILIRUBIN,TOTAL 0.5 mg/dL (0.2-1.3); BLOOD UREA NITROGEN 9 mg/dL (7-20); CALCIUM 9.5 mg/dL (8.4-10.2); CARBON DIOXIDE 28 mmol/L (22-30); CHLORIDE 105 mmol/L (98-107); GLUCOSE 80 mg/dL (75-110); POTASSIUM 4.1 mmol/L (3.6-5.0); SODIUM 140.6 mmol/L (137-145); TOTAL PROTEIN 6.9 g/dL (6.3-8.2)
[2019-01-23] MEDS ORDERED: FENTANYL CITRATE INJ/PF 100 MCG/2 ML AMPUL IV ONE ×2 (19:12→23:20)
--- NOTE | 2019-01-23 19:45 | RADIOLOGY REPORT (SQ) ---
EXAM DESCRIPTION: CT ABD/PELVIS WITH IV ONLY COMPLETED DATE/TIME: 01/23/2019 7:28 pm REASON FOR STUDY: pelvic pain, back pain, s/p d c/hysteroscop, ?perf COMPARISON: None. TECHNIQUE: CT scan of the abdomen and pelvis performed using helical scanning technique with dynamic intravenous contrast injection. No oral contrast. Images reviewed with lung, soft tissue, and bone windows. Reconstructed coronal and sagittal MPR images reviewed. Delayed images for evaluation of the urinary system also acquired. All images stored on PACS. All CT scanners at this facility use dose modulation, iterative reconstruction, and/or weight based d osing when appropriate to reduce radiation dose to as low as reasonably achievable (ALARA). [facility]: Dose Right [facility]: CareDose [facility]: Dose Right [facility]: Teradose 4D [facility]: Content Fleet CONTRAST TYPE AND DOSE: contrast/concentration: Isovue 350.00 mg/ml; Total Contrast Delivered: 100.0 ml; Total Saline Delivered: 72.0 ml RENAL FUNCTION: None required. The patient is less than 50 years old. RADIATION DOSE: CT Rad equipment meets quality standard of care and radiation dose reduction techniq ues were employed. CTDIvol: 12.5 - 16.1 mGy. DLP: 1596 mGy-cm.. LIMITATIONS: None. FINDINGS: LOWER CHEST: No significant findings. No nodules or infiltrates. LIVER: Normal size. No masses. No dilated ducts. SPLEEN: Normal size. No focal lesions. PANCREAS: No masses. No significant calcifications. No adjacent inflammation or peripancreatic fluid collections. Pancreatic duct not dilated. GALLBLADDER: Question pericholecystic fluid. No gallstones. ADRENAL GLANDS: No significant masses or asymmetry. RIGHT KIDNEY AND URETER: No solid masses. No significant calcifications. No hydronephrosis or hyd roureter. LEFT KIDNEY AND URETER: No solid masses. No significant calcifications. No hydronephrosis or hydr oureter. AORTA AND VESSELS: No aneurysm. No dissection. Renal arteries, SMA, celiac without stenosis. RETROPERITONEUM: No retroperitoneal adenopathy, hemorrhage or masses. BOWEL AND PERITONEAL CAVITY: No masses or inflammatory changes. No free fluid or peritoneal masses. APPENDIX: Not visualized. PELVIS: No mass. No free fluid. Normal bladder. Functional left ovarian cyst. ABDOMINAL WALL: No masses. No hernias. BONES: No significant or acute findings. OTHER: No other significant finding. IMPRESSION: Possible pericholecystic fluid. No free air. TECHNICAL DOCUMENTATION: JOB ID: [id number] Quality ID # [id number]: Final reports with documentation of one or more dose reduction techniques (e.g., Au tomated exposure control, adjustment of the mA and/or kV according to patient size, use of iterative reconstruction technique) 2010 [employer]- All Rights Reserved Reading location - IP/workstation name: [email or web address]
[2019-01-23] MEDS ORDERED: HYDROCODONE/ACETAMINOPHEN 5-325 MG (6 TAB/ER DISP) PO PRN (23:20)
[2019-01-23] MEDS ORDERED: ONDANSETRON ODT 4 MG TAB (6 TAB/ER DISP) PO PRN (23:20)
--- NOTE | 2019-01-23 23:26 | ER Document Report ---
ED General - General Chief Complaint: Pelvic Pain Stated Complaint: PELVIC PAIN Time Seen by Provider: 01/23/19 17:41 Primary Care Provider: BOBBY AMADOR NP [Primary Care Provider] - Follow up as needed Mode of Arrival: Ambulatory Notes: 33-year-old female with no major medical history presents with chief complaint of severe bilateral pelvic pain after having a D&C with hysteroscopy yesterday for a uterine polyp. Patient states she was seen in the office today by Dr. Bertrand and had an ultrasound and that he advised her to come here for additional testing. Procedure had been performed yesterday by Dr. Valladares. Patient does complain of some dysuria. The patient denies any fever, nausea, or vomiting. Patient denies any significant vaginal bleeding. No acute shortness of breath or chest pain. No other complaints TRAVEL OUTSIDE OF THE [place] IN LAST 30 DAYS: No - Related Data Allergies/Adverse Reactions: NSAIDS (Non-Steroidal Anti-Inflamma Allergy (Verified 01/23/19 16:01) sulfamethoxazole [From Bactrim] Allergy (Verified 01/23/19 16:01) trimethoprim [From Bactrim] Allergy (Verified 01/23/19 16:01) Past Medical History - General Information source: Patient - Social History Smoking Status: Current Every Day Smoker Frequency of alcohol use: None Drug Abuse: Marijuana Family History: Reviewed & Not Pertinent Patient has suicidal ideation: No Patient has homicidal ideation: No - Past Medical History Cardiac Medical History: Denies: Hx Coronary Artery Disease, Hx Heart Attack, Hx Hypertension Pulmonary Medical History: Denies: Hx Asthma, Hx Bronchitis, Hx COPD, Hx Pneumonia Neurological Medical History: Reports: Hx Migraine. Denies: Hx Cerebrovascular Accident, Hx Seizures Renal/ Medical History: Denies: Hx Peritoneal Dialysis Musculoskeletal Medical History: Reports Hx Arthritis - OA, Reports Hx Musculoskeletal Deformity, Reports Hx Musculoskeletal Trauma - Fractured left ankle torn biceps left arm Psychiatric Medical History: Reports: Hx Attention Deficit Hyperactivity Disorder, Hx Bipolar Disorder, Hx Depression Traumatic Medical History: Reports: Hx Fractures - Left ankle Past Surgical History: Reports: Hx Adenoidectomy, Hx Section - x3, Hx Orthopedic Surgery - Left torn biceps repair/ ankle fracture repair, Hx Tonsillectomy, Hx Tubal Ligation - Immunizations Immunizations up to date: Yes Hx Diphtheria, Pertussis, Tetanus Vaccination: Yes - 10/23/2018 Review of Systems - Review of Systems Constitutional: See HPI EENT: No symptoms reported Cardiovascular: See HPI Respiratory: See HPI Gastrointestinal: See HPI Genitourinary: See HPI Female Genitourinary: See HPI Musculoskeletal: No symptoms reported Skin: No symptoms reported Hematologic/Lymphatic: No symptoms reported Neurological/Psychological: No symptoms reported Physical Exam - Vital signs Vitals: Temp Pulse Resp BP Pulse Ox 97.9 F 51 L 16 97/54 L 97 01/23/19 16:51 01/23/19 16:51 01/23/19 16:51 01/23/19 16:51 01/23/19 16:51 - Notes Notes: PHYSICAL EXAMINATION: Reviewed vital signs and charting by RN GENERAL: Alert, interacts well. Mild distress. HEAD: Normocephalic, atraumatic. EYES: Pupils equal and round. Extraocular movements intact. ENT: Oral mucosa moist, tongue midline. NECK: Full range of motion. Trachea midline. LUNGS: Clear to auscultation bilaterally, no wheezes, rales, or rhonchi. No respiratory distress. HEART: Regular rate and rhythm. No murmur ABDOMEN: Acute tenderness to light palpation bilateral lower quadrants. No distention. Bowel sounds present EXTREMITIES: Moves all 4 extremities spontaneously. No edema, No cyanosis. PSYCH: Normal affect, normal mood. SKIN: Warm, dry, normal turgor. No rashes or lesions noted. Course - Re-evaluation Re-evalutation: 01/23/19 23:25 Mild distress but overall well-appearing. Patient sent over from Dr. Bertrand patient reports she had a normal ultrasound. CT abdomen pelvis completed which did not show any concerning findings, no free fluid concerning for retroperitoneal hemorrhage, no free air. At this time lab work is all within normal limits and plan is for pain control and follow-up with Dr. Valladares. At this time she is stable for discharge. She says that her blood pressure does run lower and this is not abnormal for her. - Vital Signs Vital signs: Temp Pulse Resp BP Pulse Ox 97.9 F 46 L 16 92/54 L 97 01/23/19 16:51 01/23/19 17:42 01/23/19 16:51 01/23/19 17:42 01/23/19 16:51 - Laboratory Result Diagrams: 01/23/19 18:15 01/23/19 18:15 Laboratory results interpreted by me: 01/23/19 18:15 WBC 13.3 H Hgb 11.9 L Absolute Lymphocytes 5.9 H Discharge - Discharge Clinical Impression: Pelvic pain Abdominal pain Qualifiers: Abdominal location: lower abdomen, unspecified Qualified Code(s): R10.30 - Lower abdominal pain, unspecified Condition: Good Disposition: HOME, SELF-CARE Additional Instructions: You were seen in the emergency department this evening for pelvic and abdominal pain. The CAT scan showed nothing concerning that would require emergent surgery or admission to the hospital. Is unclear why you are having this pain but your work-up was overall reassuring. I have sent you home with some pain medication and some antinausea medication to help bridge you. If you continue to have severe, intractable lower abdominal pain, you develop vaginal bleeding, you become dizzy/lightheaded/weakness/you pass out please immediately return to the emergency department to get reevaluated. Please follow-up with your [facility] in the next 1 to 2 days concerning this is it. Referrals: BOBBY AMADOR NP [Primary Care Provider] - Follow up as needed
[2019-01-23 23:57] VITALS: BP 95/64
== END 2019-01-23 23:57 | disposition home or self-care (01) ==
LOC: ER 15:47
DX: R10.2 Pelvic and perineal pain (principal); R10.30 Lower abdominal pain, unspecified; R30.0 Dysuria; Z98.890 Other specified postprocedural states; F17.200 Nicotine dependence, unspecified, uncomplicated
CPT/HCPCS: 96376; 99284; 96361; 96374; 86900; 86901; 36415; 86850; 85025; 80053; 81001; 74177; J3010; J7030